=== PATIENT | female | born 1970 | race Caucasian/White ===

== ENCOUNTER 2017-12-26 22:36 | Emergency (ER) | payer OTHER, SELFPAY ==
[2017-12-26] VITALS (12 sets, daily range): BP systolic 120–149; BP diastolic 79–91; PULSE 75–91; RESP 13–20; TEMP 36.7; O2SAT 95–98
--- NOTE | 2017-12-26 23:21 | ED.GENADUL_ITS ---
Discharge Plan Disposition Patient Disposition: HOME Condition: Good Discharge Details Chief Complaint: Palpitatns Clinical Impression: Atrial bigeminy, Hypokalemia Primary Care Provider: Lilliana Campo ED Provider: Esau Dukes Mcintyre Meds and New Rx's Prescriptions: Continue naproxen sodium [Aleve] 220 MG tablet 2 tab PO BID PRNQty: 30 RF: 0 colesevelam [WelChol] 625 MG tablet 625 mg PO AC Qty: 90 RF: 12 esomeprazole magnesium [Nexium] 40 MG capsule,delayed release(DR/EC) 40 mg PO BID Qty: 180 RF: 12 metronidazole 45 GM gel 2 - 4 gm Topical BID PRNQty: 45 RF: 11 promethazine 12.5 MG tablet 12.5 mg PO Q6H PRN Qty: 60 RF: 0 levothyroxine [Synthroid] 125 MCG tablet 125 mcg PO DAILY Qty: 90 RF: 11 acetaminophen [Mapap Extra Strength] 500 MG tablet 1,000 mg PO DIRECTED RF: 0 doxycycline monohydrate 100 MG tablet 100 mg PO BID PRNRF: 0 Discharge Instructions Instructions: Hypokalemia (ED) Additional Instructions: Eat foods rich in potassium. Stay hydrated. Follow-up with primary care next week. Your palpitations were caused by atrial bigeminy which is a benign arrhythmia. Return to ED if you develop chest pain, shortness of breath, syncope. Referrals: Lilliana Campo MD, [place] [Primary Care Provider] - Medical Decision Making Patient presenting with complaints of palpitations. She has had some chest tightness though that is not her major complaint. Her EKG is sinus rhythm with nonspecific ST flattening. Just before I came into the room she reported having palpitations. I went back to review the monitor alarm. Found her to be in atrial bigeminy. While talking to her she went back into this rhythm for short period of time and had symptoms. Her exam is otherwise unremarkable. Her vital signs and saturations are normal. We will go ahead and get laboratory studies including q4 troponins because of the complaint of chest tightness and the nonspecific ST changes. Will monitor her while she is here. Laboratory studies are significant for potassium of 3. Otherwise CBC, chemistries, TSH, troponin are normal. Patient is given potassium supplementation orally and IV. Subsequently palpitations stopped. Second troponin was obtained and is negative. Repeat EKG after IV potassium and oral potassium replacement shows normal T waves. Sinus rhythm at 67 with normal intervals and axis. Patient will be discharged home. She is to stay hydrated and eat a diet rich in potassium. Not clear why she is so hypokalemic as she is not on diuretics and denies being a heavy alcohol drinker. Follow-up with primary care next week. Return to ED for chest pain, shortness of breath, fainting. Medical Records Medical records reviewed: Yes I reviewed the patient's medical records. Lab Data Lab results reviewed: Yes I reviewed the patient's lab results. ECG Data Attestation: I personally reviewed and interpreted this ECG (s) as follows: Prior ECG tracings: available for review Interpretation: Normal sinus rhythm at a rate of 84. Normal axis and intervals. Nonspecific ST changes especially in the lateral precordial leads. She has a fair amount of ST flattening which had not been present compared to EKG in 2013. HPI General Mode of arrival: ambulatory . Date/Time Provider Initiated Documentation: 12/26/17 22:44 . Limitations to Documentation: no limitations . Information obtained by: patient, family and old records reviewed . HPI Narrative: Patient presents to the ED for evaluation of palpitations. She has had palpitations previously but these seem different. She actually has feeling of her heart flipping in her chest as well as heart rate being faster than usual. She has had fleeting sharp pain on and off. Nothing prolonged. She does describe some chest tightness on and off. She has had no lightheadedness or syncope. Maybe a little shortness of breath. She has been worked up previously dating back as far as 2012. More recently she had a Zio patch this summer. No arrhythmias have ever been found. She is followed at [facility] for her thyroid. She does report for the last 3 weeks feeling myalgias and malaise as well as low-grade fevers. For the last 3 days she has been having episodes of palpitations. Tonight it has been more prolonged which prompted her to come in. Related Data Home Medications Medication Instructions Recorded Confirmed acetaminophen [Mapap Extra 1,000 mg PO DIRECTED 03/04/15 12/27/17 Strength] naproxen sodium [Aleve] 2 tab PO BID PRN #30 tab 04/05/15 12/27/17 colesevelam [WelChol] 625 mg PO AC #90 tab-cap 12/27/15 12/27/17 esomeprazole magnesium [Nexium] 40 mg PO BID #180 tab-cap 03/22/17 12/27/17 metronidazole 2 - 4 gm TOPICAL BID PRN #45 script 05/01/17 12/27/17 promethazine 12.5 mg PO Q6H PRN #60 tab-cap 07/31/17 12/27/17 levothyroxine [Synthroid] 125 mcg PO DAILY #90 tab-cap NS 08/14/17 12/27/17 doxycycline monohydrate 100 mg PO BID PRN 12/27/17 12/27/17 Previous Rx's Medication Instructions Recorded esomeprazole magnesium [Nexium] 40 mg PO BID #180 tab-cap 03/22/17 promethazine 12.5 mg PO Q6H PRN #60 tab-cap 07/31/17 levothyroxine [Synthroid] 125 mcg PO DAILY #90 tab-cap NS 08/14/17 Allergies Allergy/AdvReac Type Severity Reaction Status Date / Time erythromycin base Allergy Severe Anaphylaxsis, Unverified 12/27/17 00:40 hives Sulfa (Sulfonamide Allergy Mild Skin Rash Unverified 12/27/17 00:40 Antibiotics) povidone-iodine AdvReac Intermediate Skin Rash Unverified 12/27/17 00:40 [From Betadine] soap [From Betadine] AdvReac Intermediate Skin Rash Unverified 12/27/17 00:40 tramadol AdvReac Intermediate incoherent Unverified 12/27/17 00:40 General Stated Complaint: Palpitatns KERRIE: 3 Review of Systems Constitutional Reports body ache(s), Reports fatigue, Denies fever(s), Denies headache(s), Denies lethargy, Reports malaise and Denies poor appetite Eyes Denies eye discharge and Denies eye pain ENT Denies vertigo, Denies dizziness, Denies otalgia, Denies facial pain, Denies headache(s), Denies sinus pressure and Denies sore throat Cardiovascular Denies chest pain, Denies diaphoresis, Denies syncope, Reports irregular heart rhythm, Denies lightheadedness, Reports palpitations, Denies dyspnea and Denies orthopnea Respiratory Denies cough and Denies dyspnea Gastrointestinal Denies abdominal pain, Denies diarrhea, Denies nausea and Denies vomiting Genitourinary Denies dysuria and Denies flank pain Musculoskeletal Denies back pain, Reports myalgias, Denies arthralgias and Denies tingling Integumentary/Breasts Denies rash Neurologic Denies vertigo, Denies dizziness, Denies syncope, Denies headache(s), Denies focal weakness, Denies tingling and Denies paresthesias Endocrine Reports fatigue and Reports palpitations [facility] Family History Mother Neoplasm Father Diabetes Essential hypertension Neoplasm Sister No problems noted. Brother Diabetes Essential hypertension Hyperlipidemia Brother Diabetes Essential hypertension Hyperlipidemia Grandfather Diabetes Myocardial infarction Neoplasm Grandfather Diabetes Heart disease Neoplasm Grandmother Heart disease Myocardial infarction Cerebrovascular accident Grandmother Neoplasm Cerebrovascular accident Daughter No problems noted. Daughter Epilepsy Daughter No problems noted. 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) Hypothyroidism (Chronic 09/16/12) Hypokalemia (Resolved 10/18/15) Herpes zoster without complication (Resolved 11/02/16) Headache (Chronic 11/08/10) GERD (gastroesophageal reflux disease) (Chronic) Fibromyalgia syndrome (Chronic 03/11/14) Fatigue (Chronic 10/09/13) Esophageal dysmotility (Chronic) De Quervain's tenosynovitis, right (Chronic 09/04/16) Cyst of right ovary (Resolved 11/20/14) Nondisplaced fracture of neck of left radius, initial encounter for closed fracture (Resolved 07/24/16) Chronic obstructive lung disease (Chronic 02/25/13) Chronic low back pain with left-sided sciatica (Chronic 12/27/15) Breast pain, left (Resolved 03/22/17) Bowel and bladder incontinence (Chronic 12/27/15) Blurring of visual image of both eyes (Chronic 01/04/15) Abdominal pain, right lower quadrant History of Graves' disease Social History household members: other details: 3 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 pets and animals: Yes pets and animals: dog(s) Smoking/Tobacco Use Status: Never alcohol intake: never substance use type: does not use special suman needs: No Surgical History Appendectomy Augmentation mammoplasty Cholecystectomy Diagnostic Laproscopy (08/07/02) Keira Fundoplication Procedures Repair of umbilical hernia Tonsillectomy and adenoidectomy Vaginal hysterectomy (03/03/15) Exam Const General: cooperative, comfortable and no acute distress Orientation: alert and oriented x3 HENMT Head: normocephalic and atraumatic Neck Neck: trachea midline and supple Resp Effort & Inspection: normal respiratory effort Auscultation: clear to auscultation bilaterally Cardio Rate: regular rate Rhythm: regular rhythm Heart Sounds: S1 normal and S2 normal Pulses: normal peripheral pulses GI Palpation: soft and nontender Skin General skin exam: no rashes or lesions noted Neuro General: alert, oriented x3, no focal motor deficits and CN's II-XI intact bilaterally Extrem General: no clubbing, cyanosis or edema and no calf tenderness Course Vital Signs Temperature 98.1 F 12/26/17 22:41 Pulse 82 12/26/17 22:41 Respiratory Rate 20 12/26/17 22:41 Blood Pressure 149/79 H 12/26/17 22:41 Pulse Oximetry 98 12/26/17 22:41 Temperature 98.1 F 12/26/17 22:41 Temperature Source Temporal Artery Scan 12/26/17 22:41 Pulse 82 12/26/17 22:41 Respiratory Rate 20 12/26/17 22:41 Respiratory Effort Non-Labored 12/26/17 22:41 Blood Pressure 149/79 H 12/26/17 22:41 Blood Pressure Position Sitting 12/26/17 22:41 Pulse Oximetry 98 12/26/17 22:41 Oxygen Delivery Method Room Air 12/26/17 22:41 Oxygen Flow Rate 0 12/26/17 22:41 Pain Level 0 12/26/17 22:45
[2017-12-26 23:45] LABS: Abs Immature Grans 0.01 k/cumm (0.0-0.09); Absolute Basophil Count 0.03 k/cumm (0.0-0.2); Absolute Eosinophil Count 0.05 k/cumm (0.0-0.7); Absolute Lymphocyte Count 4.48 k/cumm (1.2-3.4); Absolute Monocyte Count 0.55 k/cumm (0.11-0.7); Absolute Neutrophil Count 3.58 k/cumm (1.2-6.7); Basophils % 0.3; Eosinophils % 0.6; HCT 40.6 % (36.0-46.0); HGB 13.8 g/dL (12.0-15.5); Immature Grans % 0.1; Lymphocytes % 51.5; Mean Corpuscular Hemoglobin 31.7 pg (27.0-33.0); Mean Corpuscular Volume 93.1 fL (80-95); Mean Platelet Volume 10.4 fL (8.0-11.0); Monocytes % 6.3; Neutrophils % 41.2; Platelet Count 173 x1000/uL (130-400); RBC 4.36 m/cumm (4.00-5.20); RBC Distribution Width 12.3 % (11.7-14.6)
[2017-12-26] MEDS: Aspirin 81 MG CHEW 324 MG CH (23:50)
[2017-12-27] VITALS (30 sets, daily range): BP systolic 98–121; BP diastolic 50–93; PULSE 42–85; RESP 9–20; O2SAT 93–99
[2017-12-27 00:01] LABS: ALT 26 U/L (12-78); AST 20 U/L (15-37); Albumin 3.8 g/dL (3.4-5.0); Alkaline Phosphatase 94 U/L (46-116); BUN 14 mg/dL (7-18); Bilirubin, Total 0.3 mg/dL (0.2-1.0); CREATININE 0.78 mg/dL (0.55-1.02); Calcium 8.7 mg/dL (8.5-10.1); Chloride 103 mmol/L (98-107); Glucose 117 mg/dL (70-100); Magnesium 2.1 mg/dL (1.8-2.4); Sodium 140 mmol/L (136-145); Total Protein 7.4 g/dL (6.4-8.2); Troponin I < 0.02 ng/mL (0.00-0.06)
[2017-12-27 00:08] LABS: TSH (W/Ref FT4) 0.45 uIU/mL (0.358-3.74)
[2017-12-27] MEDS: POTASSIUM CHLORIDE 10 MEQ/100 ML BAG 100 MEQ IVPB (00:19)
[2017-12-27] MEDS: Potassium Chloride 20 MEQ TABCR 40 MEQ PO (00:27)
[2017-12-27 02:51] LABS: Troponin I < 0.02 ng/mL (0.00-0.06)
== END 2017-12-27 03:22 | disposition home or self-care (01) ==
PROVIDERS: Emergency Provider Emergency Medicine; PCP Family Medicine
DX: R00.8 Other abnormalities of heart beat (principal); E87.5 Hyperkalemia; J44.9 Chronic obstructive pulmonary disease, unspecified
CPT/HCPCS: 36415; 80053; 93005; 96365; 99284; 83735; 84443; 84484; 85025; 93010; J3480

== ENCOUNTER 2018-01-07 10:14 | Outpatient (CLI) | payer OTHER, SELFPAY ==
[2018-01-07 11:49] LABS: ALT 21 U/L (12-78); AST 18 U/L (15-37); Albumin 3.3 g/dL (3.4-5.0); Alkaline Phosphatase 81 U/L (46-116); Anion Gap 9.2 mmol/L (3-11); BUN 10 mg/dL (7-18); Bilirubin, Total 0.5 mg/dL (0.2-1.0); CO2 26.8 mmol/L (21.0-32.0); CREATININE 0.55 mg/dL (0.55-1.02); Calcium 8.3 mg/dL (8.5-10.1); Chloride 104 mmol/L (98-107); Glucose 91 mg/dL (70-100); Magnesium 1.9 mg/dL (1.8-2.4); Potassium 3.8 mmol/L (3.5-5.1); Sodium 140 mmol/L (136-145); TSH (W/Ref FT4) 0.44 uIU/mL (0.358-3.74); Total Protein 6.6 g/dL (6.4-8.2)
== END 2018-01-07 10:34 ==
PROVIDERS: PCP Family Medicine; Visit Provider Family Medicine
DX: R00.2 Palpitations (principal); E87.6 Hypokalemia; E03.9 Hypothyroidism, unspecified; E89.0 Postprocedural hypothyroidism
CPT/HCPCS: 36415; 80053; 82533; 83735; 84443; 85610

== ENCOUNTER 2018-03-15 10:41 | Outpatient (CLI) | payer OTHER, SELFPAY ==
[2018-03-15 11:59] LABS: FREE T4 1.34 ng/dL (0.76-1.46); TSH 0.55 uIU/mL (0.358-3.74)
[2018-03-15 13:00] LABS: ALT 19 U/L (12-78); AST 17 U/L (15-37); Albumin 3.7 g/dL (3.4-5.0); Alkaline Phosphatase 98 U/L (46-116); Anion Gap 8.4 mmol/L (3-11); BUN 17 mg/dL (7-18); Bilirubin, Total 0.5 mg/dL (0.2-1.0); CO2 27.6 mmol/L (21.0-32.0); CREATININE 0.71 mg/dL (0.55-1.02); Calcium 8.7 mg/dL (8.5-10.1); Chloride 104 mmol/L (98-107); Glucose 88 mg/dL (70-100); Potassium 4.2 mmol/L (3.5-5.1); Sodium 140 mmol/L (136-145); Total Protein 7.4 g/dL (6.4-8.2)
== END 2018-03-15 11:01 ==
PROVIDERS: PCP Family Medicine; Visit Provider Internal Medicine Endocrinology, Diabetes & Metabolism
DX: R53.83 Other fatigue (principal); E03.9 Hypothyroidism, unspecified
CPT/HCPCS: 36415; 80053; 84439; 84443

== ENCOUNTER 2018-06-12 20:06 | Outpatient (REF) | payer OTHER, SELFPAY ==
[2018-06-12 21:01] LABS: Clarity Clear
[2018-06-12 21:52] LABS: Bacteria Moderate HPF (Negative); C & S Indicated? C&S Done As Ordered; Casts Negative LPF (Negative); Crystals Negative HPF (Negative); Epithelial Cells Many HPF (Negative); Mucus Negative (Negative); Other Cells Negative (Negative); RBC 0-2 (0-2); WBC 0-2 HPF (0-5)
== END 2018-06-12 20:26 ==
LOC: LBN 20:06
PROVIDERS: PCP Family Medicine; Visit Provider Family Medicine
DX: R30.0 Dysuria (principal)
CPT/HCPCS: 81003; 81015; 87086

== ENCOUNTER 2018-08-13 00:24 | Outpatient (CLI) | payer OTHER, SELFPAY ==
--- NOTE | 2018-08-13 12:30 | DI.MAMMO_ITS ---
SYMPTOMS/DIAGNOSIS: SCREENING, Z12.31 MAMMOGRAM: Mammograms were interpreted according to the usual protocol including computer analysis with CAD system, tomosynthesis and C view imaging. The breasts are heterogeneously dense. There are bilateral mammary implants. No dominant mass or clumped microcalcification is identified in either breast. Current examination is compared with the previous examinations including April 2014 and there has been no gross interval change in appearance in comparison with the previous studies. CONCLUSION: No specific evidence of malignancy at this time. Routine screening examinations are suggested at yearly intervals due to the family history of breast carcinoma. Category 1, breast density category C. MQSA ASSESSMENT OF FINDINGS: Negative. Category 1. Patient will receive a letter notifying them of these results. Bi-RADS category C. The breasts are heterogeneously dense, which may obscure small masses.
== END 2018-08-13 00:44 ==
PROVIDERS: PCP Family Medicine; Visit Provider Family Medicine
DX: Z12.31 Encounter for screening mammogram for malignant neoplasm of breast (principal); Z80.3 Family history of malignant neoplasm of breast
CPT/HCPCS: 77063; 77067

== ENCOUNTER 2018-12-12 13:43 | Outpatient (CLI) | payer OTHER, SELFPAY ==
[2018-12-12 14:18] LABS: Abs Immature Grans 0.01 k/cumm (0.0-0.09); Absolute Basophil Count 0.01 k/cumm (0.0-0.2); Absolute Eosinophil Count 0.03 k/cumm (0.0-0.7); Absolute Lymphocyte Count 3.05 k/cumm (1.2-3.4); Absolute Monocyte Count 0.36 k/cumm (0.11-0.7); Absolute Neutrophil Count 2.72 k/cumm (1.2-6.7); Basophils % 0.2; Eosinophils % 0.5; HGB 14.2 g/dL (12.0-15.5); Immature Grans % 0.2; Lymphocytes % 49.4; Mean Corpuscular Hemoglobin 31.1 pg (27.0-33.0); Mean Corpuscular Volume 94.1 fL (80-95); Mean Platelet Volume 9.5 fL (8.0-11.0); Monocytes % 5.8; Neutrophils % 43.9; Platelet Count 235 x1000/uL (130-400); RBC 4.57 m/cumm (4.00-5.20); RBC Distribution Width 12.3 % (11.7-14.6); White Blood Cell Count 6.18 k/cumm (4.4-10.8)
[2018-12-12 15:44] LABS: ALT 30 U/L (14-59); AST 21 U/L (15-37); Albumin 3.9 g/dL (3.4-5.0); Alkaline Phosphatase 104 U/L (46-116); Anion Gap 10.4 mmol/L (3-11); BUN 14 mg/dL (7-18); Bilirubin, Total 0.3 mg/dL (0.2-1.0); CO2 27.6 mmol/L (21.0-32.0); CREATININE 0.79 mg/dL (0.55-1.02); Calcium 8.9 mg/dL (8.5-10.1); Chloride 104 mmol/L (98-107); Glucose 107 mg/dL (70-100); Magnesium 2.1 mg/dL (1.8-2.4); Potassium 3.8 mmol/L (3.5-5.1); Sodium 142 mmol/L (136-145); TSH (W/Ref FT4) 0.86 uIU/mL (0.36-3.74); Total Protein 7.4 g/dL (6.4-8.2)
[2018-12-13 10:02] LABS: Cyclic Citrullinated Peptide <2.5 U/mL (<5.0)
[2018-12-13 10:18] LABS: Lyme Ab w Rflx to Lyme Confirm Negative; Rheumatoid Factor 8 IU/mL (<12.5)
[2018-12-13 15:44] LABS: ANA Interpretation Negative (NEGAT)
== END 2018-12-12 14:03 ==
PROVIDERS: PCP Family Medicine; Visit Provider Family Medicine
DX: E03.9 Hypothyroidism, unspecified (principal); M25.50 Pain in unspecified joint; M79.2 Neuralgia and neuritis, unspecified
CPT/HCPCS: 36415; 80053; 86200; 83735; 84443; 85025; 86038; 86431; 86618

== ENCOUNTER 2018-12-18 00:41 | Outpatient (CLI) | payer OTHER, SELFPAY ==
--- NOTE | 2018-12-18 10:53 | DI.MRI_ITS ---
EXAM: MR BRAIN WO CLINICAL HISTORY: headache and body aches which wake her up, R51. TECHNIQUE: Multiplanar multisequence MRI was performed. COMPARISON: MRI - BRAIN W/WO CONTRAST from 01/22/2015 FINDINGS: There are again seen a few scattered foci of hyperintense signal in the white matter. These are uncha nged compared to the prior examination and likely reflect small vessel ischemic disease. The diffusi on-weighted images have a normal appearance. No intracranial hemorrhage is present. The ventricles are intact. The basilar cisterns are patent. There is no acute midline shift or mass effect. There is normal flow void in the vdjffo-el-Tadldj. The pituitary gland has a normal appearance. The visu alized paranasal sinuses are clear. The orbits and retro-orbital soft tissues are unremarkable. IMPRESSION: Unremarkable MRI of the brain. No change in appearance of the brain compared to prior examination fr om 01/22/2015.
== END 2018-12-18 01:01 ==
PROVIDERS: PCP Family Medicine; Visit Provider Family Medicine
DX: R51 Headache (principal); M79.18 Myalgia, other site
CPT/HCPCS: 70551

== ENCOUNTER 2019-01-09 01:55 | Outpatient (CLI) | payer OTHER, SELFPAY ==
--- NOTE | 2019-01-13 12:18 | W.HOLTRPT ---
Date of service: 01/13/19 Time of Service: 12:18 Holter Monitor Report Holter Monitor Note: Is a 48-hour Holter monitor ordered for the indication of palpitations. ?This patient was in normal sinus rhythm for the majority of the recording. ?The patient had 8 episodes of supraventricular tachycardia with the longest lasting 5 beats. ?The patient had rare (less than 1%) premature atrial contractions. ?The patient had no episodes of ventricular tachycardia. The patient had rare (less than 1%) single ventricular ectopic beats and 23 couplets. ?There were no episodes of atrial fibrillation, high degree heart block or pauses gradient 3 seconds. ?Patient diary events were associated with PACs and PVCs.
== END 2019-01-09 02:15 ==
PROVIDERS: PCP Family Medicine; Visit Provider Family Medicine
DX: R00.2 Palpitations (principal); I47.1 Supraventricular tachycardia; I49.1 Atrial premature depolarization; I49.3 Ventricular premature depolarization
CPT/HCPCS: 93225

== ENCOUNTER 2019-01-13 08:37 | Outpatient (CLI) | payer OTHER, SELFPAY | END 2019-01-13 08:57 | PROVIDERS: PCP Family Medicine; Visit Provider Emergency Medicine | DX: R00.2 Palpitations (principal); I49.1 Atrial premature depolarization; I49.3 Ventricular premature depolarization; I47.1 Supraventricular tachycardia | CPT/HCPCS: 93226 ==

== ENCOUNTER → 2019-05-01 13:04 | Outpatient (REF) | payer OTHER, SELFPAY | LOC: LBN 13:04 | PROVIDERS: PCP Family Medicine; Visit Provider Family Medicine | DX: N76.0 Acute vaginitis (principal) | CPT/HCPCS: 87480; 87510; 87660 ==

== ENCOUNTER 2019-08-06 07:50 | Outpatient (CLI) | payer OTHER, SELFPAY ==
--- NOTE | 2019-08-06 12:47 | DI.RAD_ITS ---
EXAM: XR SHOULDER RT COMPLETE 2+V CLINICAL HISTORY: r shoulder pain M25.511. TECHNIQUE: 2D digital imaging was performed. COMPARISON: No exams were available for comparison FINDINGS: BONES: No acute fracture is present. No bony destructive lesion is seen. JOINTS: No dislocation present. SOFT TISSUE: Normal. IMPRESSION: Unremarkable radiographs of the right shoulder. DATA REPOSITORY: RADIATION DOSE DELIVERED:
== END 2019-08-06 08:10 ==
PROVIDERS: PCP Family Medicine; Visit Provider Family Medicine
DX: M25.511 Pain in right shoulder (principal)
CPT/HCPCS: 73030

== ENCOUNTER 2019-09-18 03:11 | Outpatient (CLI) | payer OTHER, SELFPAY ==
[2019-09-18 11:48] LABS: ALT 23 U/L (14-59); AST 17 U/L (15-37); Albumin 3.3 g/dL (3.4-5.0); Alkaline Phosphatase 92 U/L (46-116); Anion Gap 6.3 mmol/L (3-11); BUN 11 mg/dL (7-18); Bilirubin, Total 0.4 mg/dL (0.2-1.0); CO2 27.7 mmol/L (21.0-32.0); CREATININE 0.61 mg/dL (0.55-1.02); Calcium 8.5 mg/dL (8.5-10.1); Chloride 104 mmol/L (98-107); Glucose 104 mg/dL (74-106); Magnesium 1.9 mg/dL (1.8-2.4); Potassium 3.9 mmol/L (3.5-5.1); Sodium 138 mmol/L (136-145); Total Protein 6.6 g/dL (6.4-8.2)
[2019-09-18 12:10] LABS: FREE T4 1.22 ng/dL (0.76-1.46)
== END 2019-09-18 03:31 ==
PROVIDERS: PCP Family Medicine; Visit Provider Family Medicine
DX: R00.2 Palpitations (principal)
CPT/HCPCS: 36415; 80053; 83735; 84439; 84443

== ENCOUNTER 2019-09-26 14:03 | Outpatient (CLI) | payer OTHER, SELFPAY | END 2019-09-26 14:23 | PROVIDERS: PCP Family Medicine; Visit Provider Family Medicine | DX: I49.3 Ventricular premature depolarization (principal); I49.1 Atrial premature depolarization; R00.0 Tachycardia, unspecified; R42 Dizziness and giddiness; R51 Headache | CPT/HCPCS: 0296T ==

== ENCOUNTER 2019-11-11 01:39 | Outpatient (CLI) | payer OTHER, SELFPAY ==
--- NOTE | 2019-11-22 09:29 | RESPIRATORY ---
Pt. was called about an 8 beat run of [employer] at 2337 11/20. Pt. was symptomless during the event and this phone call. She was appreciative of the information and advised to seek help if she feels symptoms and to contact her PCP, Dr. Campo on Sunday. Of note, she denies having received a phone call for this critical event from [facility].
--- NOTE | 2019-12-22 09:35 | W.CARDEVENT ---
Date of service: 12/22/19 Time of Service: 09:35 Cardiac Event Recorder Referring Provider:: Lilliana Campo Indications:: Paroxysmal atrial flutter Cardiac Event Note: This was a 30-day event monitor, from November 10 through December 10, 2019 Predominant rhythm was sinus. Average heart rate was 61. Minimum heart rate was 51, maximum 106 There were rare ventricular ectopic beats. There was one 8 beat run of nonsustained ventricular tachycardia There were two periods of paroxysmal atrial flutter, maximum rate 150. There was no high-grade AV block or pauses greater then 3 seconds
== END 2019-11-11 01:59 ==
PROVIDERS: PCP Family Medicine; Visit Provider Family Medicine
DX: I47.1 Supraventricular tachycardia; I47.2 Ventricular tachycardia; I49.3 Ventricular premature depolarization
CPT/HCPCS: 93270

== ENCOUNTER 2019-11-27 01:29 | Outpatient (CLI) | payer OTHER, SELFPAY ==
--- NOTE | 2019-11-27 06:30 | DI.NM_ITS ---
APPROVED REPORT Exam: Exercise Treadmill Patient Location: Out-Patient Room/Bed: Stress Nurse: Aziza Hung RN BMI: 27.98 Baseline Rhythm: Sinus Bradycardia Indications: Racing palpitations, ventricular tachycardia. Medical History Medical History: GERD. Hypokalemia. Fatigue. Palpitations. Cardiac Medications: Synthroid. Gabapentin. Nexium. Allergies: Tramadol, erythromycin base, arithromycin, sulfa drugs. Cardiac Risk Factors: None. Pretest Chest Pain Characteristics: No chest pain Exercise History: Sedentary Lung Sounds: Clear to auscultation Heart Sounds: Regular Stress Test Details Test: Exercise stress testing was performed using a Abiodun protocol. Nuclear Acquisition: Rest Tc-99m/Stress Tc-99m 1 day Rest Isotope: Tc-99m Sestamibi. Dose: 11.5 Date: 11/27/2019 Injection Time: 0845 Stress Isotope: Tc-99m Sestamibi. Dose: 37.0 Date: 11/27/2019 Injection Time: 1012 HR Resting HR Supine: 55 bpm Max Heart Rate (APMHR): 169.435630 bpm Resting HR Standin bpm Target HR (85% APMHR): 143.039008 bpm Max HR Achieved: 152 bpm % of APMHR: 89.94 Recovery HR: 78 bpm HR response to stress: Normal HR response to stress BP Resting BP Supine: 100/72 mmHg Resting BP Standin/70 mmHg Max BP: 132/85 mmHg Recovery BP: 112/82 mmHg BP response to stress: Normal blood pressure response to stress. ECG Resting ECG: Sinus Bradycardia Ectopy: None. Stress ECG: Sinus Tachycardia ST Change: Upsloping and horizontal ST depression Lead(s): II, III, aVF, V4, V5, V6 Stage: [address] Deviation: 1 mm Arrhythmia: unifocal PVC's, bigeminy, occasional PAC Recovery ECG: Sinus Rhythm Recovery ST Change: Upsloping ST depression Lead(s): II, III, AvF, V4, V5, V6 Recovery ST Deviation: 1 mm Recovery Arrhythmia: occasional PVC/PAC. Comment: ST segment returned to baseline by 1 minute recovery. Clinical Reason for Termination: Fatigue Stress Symptoms: Dizziness Exercise duration: 9 min21 sec Highest Stage Reached: Stage 4: 4.2 mph at 16% grade. Exercise capacity: 10.74 METs Stress ECG Conclusion 1. Patient exercised for 9 minutes (11 METS). Exercise was stopped due to dizziness and fatigue. 2. Patient developed upsloping and horizonatla [address] depressions in the lateral and inferior leads. 3. Both symptoms and EKG findings are suggestive of ischemia. Stress Test Summary STAGE Time (mins) Speed (mph) Grade (%) HR BP SYMPTOMS METS Supine 55 100/72 Standing 53 102/70 1 3 1.7 10 90 4.6 2 6 2.5 12 136 7 3 9 3.4 14 148 10.2 4 12 4.2 16 dizziness 12.9 1 min recovery 115 132/82 dizziness, nauseous 3 min recovery 85 132/92 symptoms resolved 6 min recovery 78 112/82 MPI Conclusion The ejection fraction was 59% with stress. There were no wall motion abnormalities. There was no evidence of ischemia on the imaging portion of the exam. There is discordant findings between the imaging and EKG portion of this exam. Radiologist Interpretation Radiologist agrees with Adventure Therapist's Interpretation. Radiologist Interpretation by: Tim Barnes MD Interpretation Date/Time: 12/01/2019 14:30:33
[2019-11-27 09:06] LABS: HCT 38.7 % (36.0-46.0); HGB 12.9 g/dL (11.2-15.7); MCH 30.6 pg (27.0-33.0); MCHC 33.3 % (32.0-36.0); MCV 91.7 fL (80-95); MPV 9.6 fL (8.0-11.0); Platelet Count 210 10^3/uL (130-400); RBC 4.22 10^6/uL (3.93-5.22); RDW 12.1 % (11.7-14.6); RDW-SD 40.4 fL; WBC 5.12 10^3/uL (4.4-10.8)
[2019-11-27 10:17] LABS: ALT 18 U/L (14-59); AST 17 U/L (15-37); Albumin 3.3 g/dL (3.4-5.0); Alkaline Phosphatase 101 U/L (46-116); Anion Gap 6.2 mmol/L (3-11); BUN 11 mg/dL (7-18); Bilirubin, Total 0.3 mg/dL (0.2-1.0); CO2 27.8 mmol/L (21.0-32.0); CREATININE 0.58 mg/dL (0.55-1.02); Calcium 8.1 mg/dL (8.5-10.1); Chloride 105 mmol/L (98-107); Glucose 98 mg/dL (74-106); Magnesium 2.1 mg/dL (1.8-2.4); Potassium 3.9 mmol/L (3.5-5.1); Sodium 139 mmol/L (136-145); TSH (W/Ref FT4) 0.25 uIU/mL (0.36-3.74); Total Protein 6.4 g/dL (6.4-8.2)
[2019-11-27 10:37] LABS: FREE T4 1.39 ng/dL (0.76-1.46)
== END 2019-11-27 01:49 ==
PROVIDERS: PCP Family Medicine; Visit Provider Family Medicine
DX: R00.2 Palpitations; I47.2 Ventricular tachycardia
CPT/HCPCS: 78452; 80053; 85027; 83735; 84439; 84443; 93017

== ENCOUNTER 2019-12-05 03:28 | Outpatient (CLI) | payer OTHER, SELFPAY ==
--- NOTE | 2019-12-05 07:15 | DI.US_ITS ---
APPROVED REPORT EXAM: Comprehensive 2D, Doppler, and color-flow Echocardiogram Patient Location: Out-Patient Creative Director: Asia Molina RDCS (AE) Indications: Atrial Flutter, Palpitations Other Information Study Quality: Good Conclusion Normal left ventricular chamber size and wall thickness. Estimated ejection fraction is 60 to 65%. There are no segmental wall motion abnormalities Normal right ventricular size and systolic function Normal right and left atrial size There are no structural or hemodynamically significant valvular abnormalities Wall motion Left Ventricle The left ventricle is normal size. The left ventricular systolic function is normal. The left ventric ular ejection fraction is within the normal range. There is normal left ventricular wall thickness. T here is normal LV segmental wall motion. There is no ventricular septal defect visualized. LVEF is 60 -65%. Right Ventricle The right ventricle is normal size. The right ventricular systolic function is normal. The RVSP is 26 .1 mmHg. Atria The left atrium size is normal. The right atrium size is normal. The interatrial septum is intact wit h no evidence for an atrial septal defect. Aortic Valve The aortic valve is normal in structure. Aortic valve is trileaflet. There is no aortic valvular sten osis. No aortic regurgitation is present. Mitral Valve The mitral valve is normal in structure. No evidence of mitral valve stenosis. Trace mitral regurgita tion. Tricuspid Valve The tricuspid valve is normal in structure. There is no tricuspid valve stenosis. Trace tricuspid reg urgitation. Pulmonic Valve The pulmonary valve is normal in structure. There is no pulmonic valvular stenosis. Trace pulmonic re gurgitation. Great Vessels The aortic root is normal in size. The ascending aorta is normal in size. Aortic arch is normal in ca liber. IVC is normal in size and collapses >50% with inspiration. Pericardium There is no pericardial effusion. 2D Dimensions IVSD d PLAX 0.85 cm F: 0.6-1.0 LV Vol A2C d MOD 78.3 mL LVPW d PLAX 0.86 cm F: 0.6 - 1.0 LV Vol A4C d MOD 99.9 mL LVID d PLAX 4.75 cm F: 3.8 - 5.2 LA vol/ BSA A2C s A-L 22.9 mL/m2 LVDs 3.30 cm F: 2.2 - 3.5 LA vol/ BSA A4C s A-L 17.8 mL/m2 Ao Root d 2.75 cm F: 2.7 - 3.3 LA Vol/ BSA Biplane s A-L 20.4 mL/m2 RA Area A4C 9.50 cm2 LA Area A4C s MOD 13.55 cm2 RA Vol/ BSA A4C s A-L 10.2 mL/m2 LA Area A2C s MOD 15.26 cm2 Ao Asc Diam d 2.66 cm F: 2.3 - 3.1 LV EF A4C MOD 65.8 % LV EF Teichholz 57.6 % LV EF A2C MOD 61.0 % LVEF (Lewis's) 63.31 % F: 54 - 74 LV EF Biplane MOD 63.3 % LV Volume 70.63 mL F: 46 - 106 SV 56.78 mL LV Volume Index 40.59 mL/m2 F: 29 - 61 SV Index 32.66 mL/m2 LV Vol Biplane MOD 89.7 mL FS 30.25 % M-Mode TAPSE 2.23 cm (M/F) >1.7 LV Diastology MV E' medial 0.136 (>0.07 m/s) E/A Ratio 1.1 LV E/e MED 6.40 (<14) MV E Vmax 0.87 (0.4-1.3 m/s) MV E' lateral 0.136 (>0.1 m/s) MV A Vmax 0.80 (0.4-1.3 m/s) LV E/e LAT 6.40 (<14) MV E/A Ratio 1.08 MV E/E' medial 6.41 MV E/E' lateral 6.41 Aortic Valve LVOT Area 2.90 cm2 AoV Area Vmax 2.35 cm2 LVOT Vmax 1.22 m/s AoV Area/ BSA (Vmax) 1.35 cm2/m2 LVOT Mean Ronak. 0.70 m/s KELLY Mean Ronak. 1.97 cm2 LVOT Peak Grad 6.0 mmHg KELLY Mean Ronak. Index 1.13 cm2/m2 LVOT Mean Grad 2.5 mmHg LVOT VTI 0.274 m LVOT Diam s 1.90 cm AoV Vmax 1.51 m/s Velocity Ratio 0.80 AoV Mean Ronak. 1.03 m/s AoV Peak Grad 9.1 mmHg LVOT SV 79.48 mL AoV Mean Grad 4.7 mmHg AoV VTI 0.331 m AoV Area VTI 2.40 cm2 AoV Area/ BSA (VTI) 1.38 cm/m2 Mitral Valve MV DT 218 (160-240 msec) MV PHT 63 msec MV Area PHT 3.49 cm2 Pulmonary Valve PV Vmax 0.90 (0.5-1.5 m/s) RVOT Peak Gr. 1.75 mmHg PV Peak Grad 3.2 mmHg RVOT Mean Gr. 0.90 mmHg PV Mean Grad 1.7 mmHg RVOT VTI 0.183 m PV VTI 0.215 m RVOT Vmax 0.66 m/s Tricuspid Valve TR Peak Grad 23.1 mmHg TR Vmax 2.41 m/s RA Pressure 3.00 mmHg RVSP (TR) 26.1 mmHg
== END 2019-12-05 03:48 ==
PROVIDERS: PCP Family Medicine; Visit Provider Internal Medicine Cardiovascular Disease
DX: R00.2 Palpitations (principal); I48.92 Unspecified atrial flutter
CPT/HCPCS: 93306

== ENCOUNTER 2019-12-16 13:51 | Emergency (ER) | payer OTHER, SELFPAY ==
[2019-12-16] VITALS (77 sets, daily range): BP systolic 100–146; BP diastolic 64–89; PULSE 56–87; RESP 12–28; TEMP 36.6; O2SAT 94–99
--- NOTE | 2019-12-16 13:45 | RT.EKG_ITS ---
APPROVED REPORT Exam: Resting ECG Patient Location: E HR:63 bpm ECG Measurements Heart Rate 63 AXIS NV 171 P 50 QRSd 89 QRS -1 QT 410 T -5 QTc 420 Conclusion Sinus rhythm...normal P axis, V-rate 60- 99
--- NOTE | 2019-12-16 14:47 | ED.GENADUL_ITS ---
Discharge Plan Disposition Patient Disposition: [facility] Condition: Stable Discharge Details Clinical Impression: Near syncope, Atrial flutter, NSVT (nonsustained ventricular tachycardia) Primary Care Provider: Lilliana Campo ED Provider: Tim Knowles Home Meds and New Rx's Prescriptions: No Action acetaminophen [Mapap Extra Strength] 500 mg tablet 1,000 mg PO TID PRNRF: 0 promethazine 12.5 mg tablet 12.5 mg PO Q6H PRN Qty: 60 RF: 0 esomeprazole magnesium [Nexium] 40 mg capsule,delayed release(DR/EC) 40 mg PO BID Qty: 180 RF: 12 prednisone 20 mg tablet See Rx Instructions PO DAILY Qty: 22 RF: 4 potassium chloride 20 mEq tablet extended release 20 meq PO DAILY PRNRF: 0 naproxen sodium [Aleve] 220 MG tablet 2 tab PO BID PRNQty: 30 RF: 0 metronidazole 0.75 % gel 1 applic Topical BID PRN (Reason: rosacea) Qty: 45 RF: 3 gabapentin 300 mg capsule 300 mg PO BID Qty: 180 RF: 4 levothyroxine [Synthroid] 112 mcg tablet 112 mcg PO DAILY Qty: 90 RF: 4 doxycycline monohydrate 100 mg tablet 100 mg PO BID PRNRF: 0 amitriptyline 25 mg tablet 25 mg PO QHS PRNRF: 0 tolterodine 4 mg capsule,extended release 24hr 4 mg PO DAILY RF: 0 Medical Decision Making <Tim Knowles MD - Last Filed: 12/17/19 10:01> 49-year-old female presents from home after feeling abrupt onset of nausea, followed by staff to the ground with a questionably syncopal event. heard a thump and went to the kitchen where he found her awake. She remembers seeing him. She denies chest pain, no shortness of breath, no headache and no abdominal pain or vomiting. She has a longstanding history of palpitations, having undergone a 14-day Zio patch, and most recently a cardiac event monitor for 30 days. She was seen by cardiology and after note of probable supraventricular tachycardia with aberrancy she was placed on metoprolol 25 mg which she shortly thereafter stopped it due to lightheadedness. She has not yet received the final impression of her recent 30-day pvc monitor, but notes that Dr. Elie, her local parking supervisor, has referred her to the electrophysiology service at [facility] for consultation on January 19. Her vital signs and exam are unremarkable. Her Zio patch monitor from October revealed 2 episodes of supraventricular tachycardia with aberrancy versus V. tach, 4 episodes of supraventricular tachycardia measuring up to 11 beats. No atrial fibrillation. Of note, there are partial reports of her recent cardiac event monitor which showed a brief episode of a flutter on November 13 and a 8 beat run of V. tach on November 20. No further interpretation available at this time. Laboratories are reassuring. Patient is in a sinus rhythm. I discussed her case with Dr. Andrés Nelson from [facility] electrophysiology service. He recommends transfer with admission for further work-up at this time. After we reviewed the patient's available monitor records she feels its most likely she had rapid a flutter with a compensatory pause causing her near syncopal events, but that she needs further work-up. No bed available tonight, she is first listed for transfer tomorrow. Will admit on lunchroom monitor overnight, patient accepted by Dr. Cornejo. At this time, the available inpatient bed not yet available. As such, will sign the patient out to the oncoming physician, Dr. Quan. Addendum: at 8 AM on December 16 [facility] of care back from Dr. Quan and the patient was accepted to [facility] in transfer, prior to being admitted to our inpatient bed. Her 8-hour troponin was negative as well. <Jamshid Quan DO - Last Filed: 12/17/19 07:04> Patient was signed out to me by my colleague Dr. Tim Knowles. Please refer to his HPI, physical exam assessment and plan. At time of signout the patient was actually admitted to the hospitalist however there are no beds available at [facility], and [facility] is not yet available for transfer. Throughout the evening the patient did well, she had no tachydysrhythmias, syncope or other abnormalities. She was given 50 mg of Benadryl to help sleep. Patient remained stable throughout the night. Her care will be transitioned back to Dr. Knowles. HPI <Tim Knowles MD - Last Filed: 12/17/19 10:01> General Mode of arrival: ambulatory . Date/Time Provider Initiated Documentation: 12/16/19 13:59 . Limitations to Documentation: no limitations . Information obtained by: patient . History of Present Illness 49 year old F presents to the emergency department with the chief complaint of Syncope/near syncope, described as mild, Patient started experiencing this minute(s) and it has been now resolved. No relieving factors improve symptom(s), No exacerbating factors reported . Patient notes other (Nausea without emesis); denies chest pain, diaphoresis, fever/chills, headaches, malaise and shortness of breath. Patient did receive the following treatments prior to arrival, none Related Data Home Medications Medication Instructions Recorded Confirmed naproxen sodium [Aleve] 2 tab PO BID PRN #30 tab 04/05/15 12/16/19 metronidazole 0.75 % topical gel 1 applic TOPICAL BID PRN #45 gm 06/17/18 12/16/19 acetaminophen 500 mg tablet 1,000 mg PO TID PRN tab 12/12/18 12/16/19 prednisone 20 mg tablet See Rx Instructions PO DAILY #22 01/09/19 12/16/19 tab esomeprazole magnesium 40 mg 40 mg PO BID #180 tab-cap 04/29/19 12/16/19 capsule,delayed release promethazine 12.5 mg tablet 12.5 mg PO Q6H PRN #60 tab-cap 04/29/19 12/16/19 gabapentin 300 mg capsule 300 mg PO BID #180 cap 09/05/19 12/16/19 levothyroxine 112 mcg tablet 112 mcg PO DAILY #90 tab 09/22/19 12/16/19 potassium chloride 20 mEq 20 meq PO DAILY PRN tab 11/28/19 12/16/19 tablet,extended release amitriptyline 25 mg PO QHS PRN 12/16/19 12/16/19 doxycycline monohydrate 100 mg PO BID PRN 12/16/19 12/16/19 tolterodine 4 mg PO DAILY 12/16/19 12/16/19 Previous Rx's Medication Instructions Recorded metronidazole 0.75 % topical gel 1 applic TOPICAL BID PRN #45 gm 06/17/18 prednisone 20 mg tablet See Rx Instructions PO DAILY #22 01/09/19 tab esomeprazole magnesium 40 mg 40 mg PO BID #180 tab-cap 04/29/19 capsule,delayed release promethazine 12.5 mg tablet 12.5 mg PO Q6H PRN #60 tab-cap 04/29/19 gabapentin 300 mg capsule 300 mg PO BID #180 cap 09/05/19 levothyroxine 112 mcg tablet 112 mcg PO DAILY #90 tab 09/22/19 Allergies Allergy/AdvReac Type Severity Reaction Status Date / Time erythromycin base Allergy Severe Anaphylaxsis, Verified 12/16/19 14:14 hives Sulfa (Sulfonamide Allergy Mild Skin Rash Verified 12/16/19 14:14 Antibiotics) povidone-iodine AdvReac Intermediate Skin Rash Verified 12/16/19 14:14 [From Betadine] soap [From Betadine] AdvReac Intermediate Skin Rash Verified 12/16/19 14:14 tramadol AdvReac Intermediate incoherent Verified 12/16/19 14:14 General Stated Complaint: Dizzy/Sync KERRIE: 2 Review of Systems <Tim Knowles MD - Last Filed: 12/17/19 10:01> Narrative: Denies palpitations, no chest pain, no headache. No injury. Now feels normal. Mild nausea that was transient and now passed. 8 systems reviewed and otherwise negative. Patient recently traveled to [place], had negative COVID-19 test this past Sunday. PFSH <Tim Knowles MD - Last Filed: 12/17/19 10:01> Medical History (Updated 12/16/19 @ 21:54 by Tra Singh) Abdominal pain Abdominal pain Abdominal pain, right lower quadrant Episodic prior to menses. Requires Dilaudid and NSAIDs for relief. 11/18/2014 ED visit for constant pain. R sided ovarian cyst. Actinic keratoses (05/01/17) Ankle edema (01/27/13) us neg times 1 occurred since long distance flight bro recently dx w/ PE Ankle edema 01/27/13 us neg times 1 occurred since long distance flight. bro recently dx w/PE Ankle edema (01/27/13) Annual physical exam (07/31/17) Arthralgia (03/03/14) Atypical mole (05/04/15) Blurring of visual image of both eyes (01/04/15) eye exam normal Bowel and bladder incontinence (12/27/15) ?hydronephrosis by MRI. 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 Hypokalemia (10/18/15) Hypokalemia (10/18/15) Hypothyroidism (09/16/12) S/P Grave's disease w/GONZALEZ [place]. Kidney stone (01/04/05) Kidney stone (01/04/05) Lichen planus-like dermatitis (05/05/14) testing hep c Meckel's diverticulum (01/04/03) s/p surgical repair. Myalgia and myositis, unspecified (05/27/13) EMG studies - left sided weakness seeing rheum 09/12/13 seen by neurology [facility] [place] Neck pain (01/05/04) left C7-8; intense suboccipital; MRI 04/09 L4-5 Neck pain (11/08/10) Nondisplaced fracture of neck of left radius, initial encounter for closed fracture (07/24/16) Pain of left breast (03/22/17) Pain of right thumb (10/02/16) Pain of right thumb (10/02/16) Palpitations (01/27/13) Paroxysmal atrial flutter Rash (06/22/14) Right hip pain (04/24/16) Right lower quadrant pain (11/20/14) Right lower quadrant pain 03/27/12 Right lower quadrant pain (03/27/12) Rosacea (01/27/13) Shoulder pain, right Tinnitus (06/22/14) Weakness of left lower extremity (12/27/15) CONFIRMED EMG PER BELKIS Surgical History (Updated 12/16/19 @ 20:08 by Tra Singh) Appendectomy 2007 [facility] [place] with repair of Meckels diverticulum. Augmentation mammoplasty Cholecystectomy 2009 [facility] [place]. Cholecystectomy Diagnostic Laproscopy (08/07/02) RLQ pain. Nl pelvis and ovaries. No ovarian cysts. minimal pelvic endometriosis. H/O breast augmentation H/O breast augmentation H/O breast surgery H/O surgical procedure 02/05/98 radioactive implant History of bilateral ligation of fallopian tubes History of bilateral tubal ligation 02/06/96 History of breast augmentation History of gynecologic surgery cryotherapy, manual rupture of right ovarian cyst 2003 History of oophorectomy, unilateral 11/05/14 right History of unilateral oophorectomy Keira Fundoplication Procedures CERVICAL LES CRYOTHERAPY Repair of umbilical hernia with mesh. Dr. Milton. S/P appendectomy S/P cholecystectomy 02/05/09 [facility] [place] S/P hernia repair with mesh placement S/P tonsillectomy and adenoidectomy S/P vaginal hysterectomy L ovary remains Status post appendectomy Status post cholecystectomy Status post hernia repair Status post Keira fundoplication Status post Keira fundoplication Status post tonsillectomy and adenoidectomy Status post vaginal hysterectomy (03/03/15) Tonsillectomy and adenoidectomy Vaginal hysterectomy (03/03/15) TVH. Previously had R ophorectomy and bilateral salpingectomy. Family History Mother , 69 Lung cancer Father , 72 Diabetes Essential hypertension Liver cancer Prostate cancer Sister No problems noted. Brother Diabetes Essential hypertension Hyperlipidemia Brother Diabetes Essential hypertension Hyperlipidemia Alcohol abuse Maternal Grandfather Diabetes Myocardial infarction Throat cancer Paternal Grandfather Diabetes Heart disease Prostate cancer Bone cancer Maternal Grandmother Heart disease Myocardial infarction Stroke Paternal Grandmother Stroke Rectal cancer Stomach cancer Bowel cancer Daughter No problems noted. Daughter Epilepsy Daughter No problems noted. 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 Pets and animals: Yes Pets and animals: dog(s) Sexually active: Yes Do you think of yourself as: straight/heterosexual Current gender identity: female What is your relationship status?: How often do you talk on the phone with friends or family?: three or more times per week How often do you get together with friends or relatives?: three or more times per week How often do you attend amish or jainism services?: 1-3 times per year Do you belong to any clubs or organized social groups?: no Panel score (0-1 are the most socially isolated patients): 2 What type of physical activity do you participate in: none Dionna/Gnosticist: Restoration Special dionna needs: No Seatbelt use: always Drive intox or ride w/intox company driver: No Do you feel safe in your relationship?: Yes Exam <Tim Knowles MD - Last Filed: 12/17/19 10:01> Narrative Exam Narrative: GEN: awake, alert, oriented 3. Pleasant, well groomed, interactive. HEAD: Normocephalic, atraumatic ENT: Mucous membranes moist, oropharynx unremarkable, External ear exam unremarkable EYES: PERRL, EOMI NECK: Full ROM, no RALPH, no menigismus CHEST/RESP: Nontender, clear to auscultation bilateral, no wheeze/rhonchi/rales CARDIOVASCULAR: RRR, no murmur, rub suyapa. 2+ Rad pulse bilateral ABDOMEN: Soft, nontender, no mass. +Bowel sounds EXT: Full ROM, no edema, no rash Neuro: Grossly normal neurologic exam, conversant, interactive. Psych: Speech fluent, thoughts congruent, affect normal Course <Tim Knowles MD - Last Filed: 12/17/19 10:01> Vital Signs Vital signs: Vital Signs Temperature 36.6 C 12/16/19 14:08 Pulse 68 12/16/19 14:08 Respiratory Rate 19 12/16/19 14:08 Blood Pressure 128/79 12/16/19 14:08 Pulse Oximetry 98 12/16/19 14:08 Temperature 36.6 C 12/16/19 14:08 Temperature Source Skin 12/16/19 14:08 Pulse 68 12/16/19 14:08 Respiratory Rate 19 12/16/19 14:08 Respiratory Effort 12/16/19 14:18 Blood Pressure 128/79 12/16/19 14:08 Blood Pressure Position Supine 12/16/19 14:08 Pulse Oximetry 98 12/16/19 14:08 Oxygen Delivery Method Room Air 12/16/19 14:08 Oxygen Flow Rate 0 12/16/19 14:08 Pain Level 0 12/16/19 14:08 Sign Out <Tim Knowles MD - Last Filed: 12/17/19 10:01> Sign Out Data: Sign Out Comment: Pending admission, AM transfer [facility] [place] Last updated by Tim Knowles MD at 12/16/19 19:07 Sign Out Comment: admitted to medicine, pending dispo upstairs or to [facility] [place] Last updated by Jamshid Quan DO at 12/17/19 07:00
[2019-12-16 15:00] LABS: Abs Immature Grans 0.01 10^3/uL (0.0-0.06); Absolute Basophil Count 0.02 10^3/uL (0.0-0.2); Absolute Eosinophil Count 0.07 10^3/uL (0.0-0.7); Absolute Lymphocyte Count 3.08 10^3/uL (1.2-3.4); Absolute Monocyte Count 0.47 10^3/uL (0.1-0.8); Absolute Neutrophil Count 2.76 10^3/uL (1.2-6.7); Basophils % 0.3; Eosinophils % 1.1; HCT 42.1 % (36.0-46.0); Immature Grans % 0.2; MCH 30.6 pg (27.0-33.0); MCHC 33.3 % (32.0-36.0); MCV 91.9 fL (80-95); MPV 9.7 fL (8.0-11.0); Monocytes % 7.3; Neutrophils % 43.1; Nucleated RBC 0 %; Platelet Count 226 10^3/uL (130-400); RBC 4.58 10^6/uL (3.93-5.22); RDW 12.3 % (11.7-14.6); RDW-SD 41.7 fL; WBC 6.41 10^3/uL (4.4-10.8)
[2019-12-16 15:28] LABS: ALT 20 U/L (14-59); AST 16 U/L (15-37); Albumin 3.6 g/dL (3.4-5.0); Alkaline Phosphatase 111 U/L (46-116); Anion Gap 7.6 mmol/L (3-11); BUN 9 mg/dL (7-18); Bilirubin, Total 0.3 mg/dL (0.2-1.0); CO2 27.4 mmol/L (21.0-32.0); CREATININE 0.69 mg/dL (0.55-1.02); Calcium 8.5 mg/dL (8.5-10.1); Chloride 104 mmol/L (98-107); Glucose 107 mg/dL (74-106); Magnesium 2.3 mg/dL (1.8-2.4); Potassium 3.5 mmol/L (3.5-5.1); Sodium 139 mmol/L (136-145); Total Protein 7.3 g/dL (6.4-8.2)
[2019-12-16 15:29] LABS: Troponin I < 0.05 ng/mL (<0.06)
[2019-12-16] MEDS: Gabapentin 300 MG CAP PO (17:20)
[2019-12-16] MEDS: Promethazine 25 MG TAB 12.5 MG PO (17:20)
[2019-12-16] MEDS: Tolterodine 2 MG CAPCR 4 MG PO (17:40)
[2019-12-16 18:20] LABS: Troponin I < 0.05 ng/mL (<0.06)
--- NOTE | 2019-12-16 19:40 | HPE_ITS ---
Date of service: 12/16/19 Time of Service: 19:40 Assessment and Plan Assessment and plan (1) Syncope: Status: Chronic Assessment and plan: As the patient was not wearing any Holter monitor at the time of her syncopal spell this morning it is unclear as to the exact etiology but given her recent abnormal cardiac event recorder findings of PSVT and atrial flutter and nonsustained ventricular tachycardia is not hard to surmise that her syncope was related to some cardiac arrhythmia. Her troponin levels have remained normal and she has had a recent work-up for ischemic or structural heart disease. At this point an EP study is warranted. Patient reportedly has been accepted for transfer to [facility] once a bed becomes available. Because the patient is still a person under interest because of her recent travel to [place] she will need to remain in isolation until her repeat SARS-CoV-2 PCR test is negative. We will continue to monitor on telemetry overnight. At this point I would not start any AV bryn blocking drugs unless she develops sustained supraventricular tachycardia or atrial flutter. Qualifiers: Syncope type: unspecified Qualified Code(s): R55 - Syncope and collapse (2) NSVT (nonsustained ventricular tachycardia): Status: Acute (3) Paroxysmal atrial flutter: Status: Acute (4) PSVT (paroxysmal supraventricular tachycardia): Status: Acute History of Present Illness History of Present Illness Chief Complaint: palpitations, syncope Narrative: 49-year-old female with past medical history of COPD, Graves' disease (treated 1998 with I-131 and subsequent thyroid replacement), sciatica, GERD and long history of palpitations and exertional fatigue and dyspnea who presents to the E R after a syncope event at home, heard but not seen by her . Patient states that she woke up feeling nauseated and felt that way all morning and was working in the kitchen when she collapsed to the ground at home. Her heard a thump and went to their kitchen to find the patient awake and on the floor. Patient does not recall feeling lightheaded or dizzy before collapsing and has no recollection of falling to the floor just that she recalled seeing her looking over her. Patient denies any chest pain/pressure, dyspnea nor any headache or abdominal pain or vomiting. She has had numerous Holter monitors and Zio patch recordings over the last few years and more recently has seen Dr. Delgadillo, digital forensic examiner, and has had extensive cardiac workup (including normal echo and normal stress GXT MPI) repeat Zio patch in September 2019 and just completed 30 day cardiac event recorder. The 14 day Zio patch from 10/01 to 10/17/2019 demonstrated NSR w/ no high grade block or afib but showed runs of PSVT and 2 episodes labeled VT but were likely SVT w/ aberrancy. Events from the 30 day event recorder included runs of atrial flutter at 140 to 150 bpm on 11/13 associated w/ feelings of fluttering or skipped beats. Event from 11/21 included 8 beat run of VT at rate of 180 bpm. She followed up w/ Dr. Delgadillo on 11/28/2019 who started her on Toprol XL 25 mg daily and referred her to [facility] cardiology services. The patient has since stopped her Toprol XL d/t complaints of lightheadedness. Dr. Delgadillo notes that the patient has been given a diagnosis of mild obstructive sleep apnea and tried but could not tolerate CPAP. Workup in the ER tonight included EKG, routine labs (CBC, CMP, troponin I). All have been normal or unremarkable. She had TFT's done 11/27/2019 which showed low TSH 0.25 but normal FT4 1.39. Dr. Tim Knowles, ER attending, spoke w/ [facility] cardiology who has accepted the patient for evaluation by EP services but a bed will not be available until tomorrow. Of note, she is a person of interest w/ respect to SARS-CoV-2 testing as the patient just returned from [place] this past Sunday after going down there to check on some of her property. She reportedly had a negative nasal antigen swab upon return this was done in [facility]. PCR testing was done earlier this evening. Review of Systems All systems reviewed & are unremarkable except as noted in HPI and below Cardiovascular Cardiovascular: Denies chest pain, Reports syncope, Reports irregular heart rhythm, Denies leg edema, Denies dyspnea and Denies dyspnea on exertion Respiratory Respiratory: Denies dyspnea and Denies dyspnea on exertion Gastrointestinal Gastrointestinal: Reports system reviewed and no additional complaints, except as documented Genitourinary Genitourinary: Reports system reviewed and no additional complaints, except as documented Musculoskeletal Musculoskeletal: Reports system reviewed and no additional complaints, except as documented Neurologic Neurologic: Reports syncope Endocrine Endocrine: Reports system reviewed and no additional complaints, except as documented [facility] Medical History (Updated 12/16/19 @ 21:54 by Tra Singh) Abdominal pain Abdominal pain Abdominal pain, right lower quadrant Episodic prior to menses. Requires Dilaudid and NSAIDs for relief. 11/18/2014 ED visit for constant pain. R sided ovarian cyst. Actinic keratoses (05/01/17) Ankle edema (01/27/13) us neg times 1 occurred since long distance flight bro recently dx w/ PE Ankle edema 01/27/13 us neg times 1 occurred since long distance flight. bro recently dx w/PE Ankle edema (01/27/13) Annual physical exam (07/31/17) Arthralgia (03/03/14) Atypical mole (05/04/15) Blurring of visual image of both eyes (01/04/15) eye exam normal Bowel and bladder incontinence (12/27/15) ?hydronephrosis by MRI. Breast pain, left (03/22/17) Cervicalgia 11/08/10 Chronic low back pain with left-sided sciatica (12/27/15) Chronic obstructive lung disease (02/25/13) PFT FEV1 71% Closed nondisplaced fracture of neck of left radius (07/24/16) Cyst of right ovary (11/20/14) De Quervain's tenosynovitis, right (09/04/16) Disorder of gallbladder Disorder of gallbladder Dysmenorrhea (11/20/14) Dysmenorrhea 11/20/14 Dysmenorrhea (11/20/14) Esophageal dysmotility Facial twitching (06/22/14) Fatigue (10/09/13) Fibromyalgia syndrome (03/11/14) per clinical operations consultant Kishan 03/22 GERD (gastroesophageal reflux disease) Lap keira x 2 (') Headache (11/08/10) Heart murmur h/o systolic murmur Heart murmur Herpes zoster without complication (11/02/16) Herpes zoster without complication (11/02/16) History of Graves' disease 1998 Rx with I131 and Thyroid replacement. Hypokalemia (10/18/15) Hypokalemia (10/18/15) Hypothyroidism (09/16/12) S/P Grave's disease w/GONZALEZ [place]. Kidney stone (01/04/05) Kidney stone (01/04/05) Lichen planus-like dermatitis (05/05/14) testing hep c Meckel's diverticulum (01/04/03) s/p surgical repair. Myalgia and myositis, unspecified (05/27/13) EMG studies - left sided weakness seeing rheum 09/12/13 seen by neurology [facility] Neck pain (01/05/04) left C7-8; intense suboccipital; MRI 04/09 L4-5 Neck pain (11/08/10) Nondisplaced fracture of neck of left radius, initial encounter for closed fracture (07/24/16) Pain of left breast (03/22/17) Pain of right thumb (10/02/16) Pain of right thumb (10/02/16) Palpitations (01/27/13) Paroxysmal atrial flutter Rash (06/22/14) Right hip pain (04/24/16) Right lower quadrant pain (11/20/14) Right lower quadrant pain 03/27/12 Right lower quadrant pain (03/27/12) Rosacea (01/27/13) Shoulder pain, right Tinnitus (06/22/14) Weakness of left lower extremity (12/27/15) CONFIRMED EMG PER BELKIS Surgical History (Updated 12/16/19 @ 20:08 by Tra Singh) Appendectomy 2007 [facility] with repair of Meckels diverticulum. Augmentation mammoplasty Cholecystectomy 2009 [facility]. Cholecystectomy Diagnostic Laproscopy (08/07/02) RLQ pain. Nl pelvis and ovaries. No ovarian cysts. minimal pelvic endometriosis. H/O breast augmentation H/O breast augmentation H/O breast surgery H/O surgical procedure 02/05/98 radioactive implant History of bilateral ligation of fallopian tubes History of bilateral tubal ligation 02/06/96 History of breast augmentation History of gynecologic surgery cryotherapy, manual rupture of right ovarian cyst 2002 History of oophorectomy, unilateral 11/05/14 right History of unilateral oophorectomy Keira Fundoplication Procedures CERVICAL LES CRYOTHERAPY Repair of umbilical hernia with mesh. Dr. Milton. S/P appendectomy S/P cholecystectomy 02/05/09 [facility] S/P hernia repair with mesh placement S/P tonsillectomy and adenoidectomy S/P vaginal hysterectomy L ovary remains Status post appendectomy Status post cholecystectomy Status post hernia repair Status post Keira fundoplication Status post Keira fundoplication Status post tonsillectomy and adenoidectomy Status post vaginal hysterectomy (03/03/15) Tonsillectomy and adenoidectomy Vaginal hysterectomy (03/03/15) TVH. Previously had R ophorectomy and bilateral salpingectomy. Family History Mother , 69 Lung cancer Father , 72 Diabetes Essential hypertension Liver cancer Prostate cancer Sister No problems noted. Brother Diabetes Essential hypertension Hyperlipidemia Brother Diabetes Essential hypertension Hyperlipidemia Alcohol abuse Maternal Grandfather Diabetes Myocardial infarction Throat cancer Paternal Grandfather Diabetes Heart disease Prostate cancer Bone cancer Maternal Grandmother Heart disease Myocardial infarction Stroke Paternal Grandmother Stroke Rectal cancer Stomach cancer Bowel cancer Daughter No problems noted. Daughter Epilepsy Daughter No problems noted. 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 Pets and animals: Yes Pets and animals: dog(s) Sexually active: Yes Do you think of yourself as: straight/heterosexual Current gender identity: female What is your relationship status?: How often do you talk on the phone with friends or family?: three or more times per week How often do you get together with friends or relatives?: three or more times per week How often do you attend gnosticism or adventist services?: 1-3 times per year Do you belong to any clubs or organized social groups?: no Panel score (0-1 are the most socially isolated patients): 2 What type of physical activity do you participate in: none Dionna/Anglican: Jehovah'S Witness Special dionna needs: No Seatbelt use: always Drive intox or ride w/intox charter and tour bus driver: No Do you feel safe in your relationship?: Yes Meds Home Medications and Allergies Home Medications Medication Instructions Recorded Confirmed Type naproxen sodium [Aleve] 2 tab PO BID PRN #30 tab 04/05/15 12/16/19 History metronidazole 0.75 % topical gel 1 applic TOPICAL BID PRN #45 gm 06/17/18 12/16/19 Rx acetaminophen 500 mg tablet 1,000 mg PO TID PRN tab 12/12/18 12/16/19 History prednisone 20 mg tablet See Rx Instructions PO DAILY #22 01/09/19 12/16/19 Rx tab esomeprazole magnesium 40 mg 40 mg PO BID #180 tab-cap 04/29/19 12/16/19 Rx capsule,delayed release promethazine 12.5 mg tablet 12.5 mg PO Q6H PRN #60 tab-cap 04/29/19 12/16/19 Rx gabapentin 300 mg capsule 300 mg PO BID #180 cap 09/05/19 12/16/19 Rx levothyroxine 112 mcg tablet 112 mcg PO DAILY #90 tab 09/22/19 12/16/19 Rx potassium chloride 20 mEq 20 meq PO DAILY PRN tab 11/28/19 12/16/19 History tablet,extended release amitriptyline 25 mg PO QHS PRN 12/16/19 12/16/19 History doxycycline monohydrate 100 mg PO BID PRN 12/16/19 12/16/19 History tolterodine 4 mg PO DAILY 12/16/19 12/16/19 History Allergies Allergy/AdvReac Type Severity Reaction Status Date / Time erythromycin base Allergy Severe Anaphylaxsis, Verified 12/16/19 14:14 hives Sulfa (Sulfonamide Allergy Mild Skin Rash Verified 12/16/19 14:14 Antibiotics) povidone-iodine AdvReac Intermediate Skin Rash Verified 12/16/19 14:14 [From Betadine] soap [From Betadine] AdvReac Intermediate Skin Rash Verified 12/16/19 14:14 tramadol AdvReac Intermediate incoherent Verified 12/16/19 14:14 Exam Narrative Exam Narrative: Middle-age female lying on a hospital gurney in the emergency department. She is alert and oriented person place time circumstance. HEENT is unremarkable. Neck is supple nontender no JVD no thyromegaly no cervical lymphadenopathy normal carotid pulses Lungs are clear to auscultation Heart regular rate and rhythm without murmur rub or gallop Abdomen soft nontender NABS Lower extremities without peripheral cyanosis or edema no calf tenderness or swelling. Neuro exam is grossly intact nonfocal. Results Labs Result diagrams: 12/16/19 14:17 12/16/19 14:17 Labs: Laboratory Results - last 24 hr 12/16/19 12/16/19 12/16/19 14:17 14:17 18:00 WBC 6.41 RBC 4.58 Hgb 14.0 Hct 42.1 MCV 91.9 MCH 30.6 MCHC 33.3 RDW 12.3 Plt Count 226 MPV 9.7 Immature Gran % 0.2 Neutrophils % 43.1 Lymphocytes % 48.0 Monocytes % 7.3 Eosinophils % 1.1 Basophils % 0.3 Nucleated RBC % 0 Absolute Neutrophils 2.76 Absolute Lymphocytes 3.08 Absolute Monocytes 0.47 Absolute Eosinophils 0.07 Absolute Basophils 0.02 Sodium 139 Potassium 3.5 Chloride 104 Carbon Dioxide 27.4 Anion Gap 7.6 BUN 9 Creatinine 0.69 Estimated GFR/1.73 m2 >= 60.00 Glucose 107 H Calcium 8.5 Magnesium 2.3 Total Bilirubin 0.3 AST 16 ALT 20 Alkaline Phosphatase 111 Troponin I < 0.05 < 0.05 Total Protein 7.3 Albumin 3.6 Last Vital Signs Temp 36.6 C 12/16/19 14:08 Pulse 63 12/16/19 18:40 Resp 22 12/16/19 19:20 BP 126/77 12/16/19 18:40 Pulse Ox 95 12/16/19 19:20 COVID-19 Screening Have you,or household,traveled outside [place] in last 14 days?: Yes
[2019-12-16] MEDS: diphenhydrAMINE 25 MG CAP 50 MG PO (20:30)
[2019-12-16] MEDS: Enoxaparin 60 MG/0.6 ML SYR SC (20:31)
[2019-12-16] MEDS: Zolpidem 6.25 MG TABCR PO (22:14)
[2019-12-16 23:48] LABS: Troponin I < 0.05 ng/mL (<0.06)
[2019-12-17] VITALS (34 sets, daily range): BP systolic 101–120; BP diastolic 65–78; PULSE 47–87; RESP 12–23; O2SAT 91–96
--- NOTE | 2019-12-17 06:27 | NUR.NOTE ---
Nursing Note: Pt declined levothyroxine. Pt would like this medication with her other morning meds at 0800ish.
[2019-12-17] MEDS: Levothyroxine 112 MCG TAB PO (09:19)
[2019-12-17] MEDS: Promethazine 25 MG TAB (09:19)
[2019-12-17] MEDS: Gabapentin 300 MG CAP PO (09:19)
[2019-12-17] MEDS: Esomeprazole 40 MG CAPCR PO (09:19)
[2019-12-17 15:11] LABS: COVID-19 RT-PCR UVMMC Result Negative (Negative)
--- NOTE | 2019-12-17 15:53 | NUR.NOTE ---
Patient transferred to [facility], Covid result faxed to [phone] Note:
== END 2019-12-17 09:12 | disposition short-term general hospital (02) ==
PROVIDERS: Internal Medicine; Emergency Provider Emergency Medicine; PCP Family Medicine
DX: I47.2 Ventricular tachycardia (principal); I48.92 Unspecified atrial flutter; R55 Syncope and collapse; R11.0 Nausea; Z03.818 Encounter for observation for suspected exposure to other biological agents ruled out; J44.9 Chronic obstructive pulmonary disease, unspecified; I47.1 Supraventricular tachycardia
CPT/HCPCS: 36415; 80053; 93005; 96372; 99220; 99285; U0003; 83735; 84484; 85025; 93010; J1650

== ENCOUNTER 2020-04-26 03:41 | Outpatient (CLI) | payer BC, SELFPAY ==
[2020-04-26 13:11] LABS: TSH (W/Ref FT4) 0.87 uIU/mL (0.36-3.74)
== END 2020-04-26 03:42 | disposition home or self-care (01) ==
LOC: LBO 03:41
PROVIDERS: PCP Family Medicine; Visit Provider Family Medicine
DX: E03.9 Hypothyroidism, unspecified (principal)
CPT/HCPCS: 36415; 84443

== ENCOUNTER 2020-09-28 17:09 | Outpatient (REF) | payer BC, SELFPAY ==
[2020-09-28 19:50] LABS: Bilirubin Negative (Negative); Blood Negative (Negative); Clarity Clear (Clear); Glucose Negative (Negative); Ketones Negative (Negative); Leukocyte Esterase Trace (Negative); Nitrite Negative (Negative); Specific Gravity 1.015 (1.005-1.025); Urobilinogen 0.2 EU/dL (Up TO 0.2); pH 5.5 (5-8)
[2020-09-28 20:13] LABS: RBC Negative HPF (0-2); WBC 20-50 HPF (0-5)
[2020-09-28 20:14] LABS: Bacteria Few HPF (Negative); C & S Indicated? No/Sq. Contamination; Casts Negative LPF (Negative); Crystals Negative HPF (Negative); Epithelial Cells Many HPF (Negative); Mucus Negative (Negative); Other Cells Negative (Negative)
== END 2020-09-28 17:10 | disposition home or self-care (01) ==
LOC: LBN 17:09
PROVIDERS: PCP Family Medicine; Visit Provider Family Medicine
DX: R35.0 Frequency of micturition (principal)
CPT/HCPCS: 81003; 81015

== ENCOUNTER 2021-01-21 03:27 | Outpatient (CLI) | payer BC, SELFPAY ==
[2021-01-21 13:28] LABS: TSH (W/Ref FT4) 1.17 uIU/mL (0.36-3.74)
== END 2021-01-21 03:28 | disposition home or self-care (01) ==
LOC: LBO 03:27
PROVIDERS: PCP Family Medicine; Visit Provider Family Medicine
DX: E03.9 Hypothyroidism, unspecified (principal); R00.2 Palpitations; L71.9 Rosacea, unspecified
CPT/HCPCS: 36415; 84443

== ENCOUNTER 2021-03-07 00:40 | Outpatient (CLI) | payer BC, SELFPAY ==
--- NOTE | 2021-03-07 14:45 | DI.MAMMO_ITS ---
Exam(s) MG MAMMO SCREENING 60 MIN DUR EXAM: MG MAMMO SCREENING 60 MIN DUR CLINICAL HISTORY: breast cancer screening,implants,z98.82,z12.31 TECHNIQUE: Mammograms were interpreted according to the usual protocol including computer analysis w ith CAD system, tomosynthesis and C-view imaging. Implant displaced views were performed in addition to the routine views. COMPARISON: 2011 through 2018 FINDINGS: The breasts are composed of scattered fibroglandular densities, Breast Density category B. No suspicious masses or suspicious microcalcifications are seen. No skin thickening or abnormal axillary lymph nodes are seen. There has been no significant change from prior exams. There are bilateral subpectoral breast implant s which appear intact. IMPRESSION: BI-RADS Category 1, Negative mammogram Yearly screening mammography is recommended. Breast Density - Category B, scattered fibroglandular densities. A negative radiographic report should not delay biopsy if a dominant or clinically suspicious mass is present. Up to ten percent of cancers are not identified on mammography. A negative report may reinforce clinical impression. Adenosis and dense breasts may obscure an underlying neoplasm. False positive reports average 6 to 10%. Patient will receive a letter notifying them of these results.
== END 2021-03-07 01:00 ==
PROVIDERS: PCP Family Medicine; Visit Provider Family Medicine
DX: Z12.31 Encounter for screening mammogram for malignant neoplasm of breast (principal); Z98.82 Breast implant status
CPT/HCPCS: 77063; 77067

== ENCOUNTER 2021-04-29 13:41 | Outpatient (CLI) | payer BC, SELFPAY ==
--- NOTE | 2021-04-29 13:30 | RT.EKG_ITS ---
APPROVED REPORT Exam: Resting ECG Reason for Exam: NPW Baseline needed Patient Location: O HR:71 bpm ECG Measurements Heart Rate 71 AXIS ME 185 P 77 QRSd 127 QRS -6 QT 535 T 20 QTc 582 Conclusion Sinus rhythm...normal P axis, V-rate 50- [address]-T abnormalities Long QTC
== END 2021-04-29 13:42 | disposition home or self-care (01) ==
LOC: DI.CARD 13:42
PROVIDERS: PCP Family Medicine; Visit Provider Internal Medicine Cardiovascular Disease
DX: R07.9 Chest pain, unspecified (principal)
CPT/HCPCS: 93010

== ENCOUNTER 2021-05-20 02:17 | Outpatient (CLI) | payer BC, SELFPAY ==
[2021-05-20 14:57] LABS: Hemoglobin A1C 6.4 % (<5.7)
[2021-05-20 15:47] LABS: ALT 35 U/L (14-59); AST 22 U/L (15-37); Albumin 3.6 g/dL (3.4-5.0); Alkaline Phosphatase 131 U/L (46-116); Anion Gap 7.4 mmol/L (3-11); BUN 13 mg/dL (7-18); Bilirubin, Total 0.4 mg/dL (0.2-1.0); CO2 30.6 mmol/L (21.0-32.0); CREATININE 0.7 mg/dL (0.55-1.02); Calcium 8.6 mg/dL (8.5-10.1); Calculated LDL 78 mg/dL (<100); Chloride 102 mmol/L (98-107); Cholesterol 180 mg/dL (<200); Glucose 103 mg/dL (74-106); HDL Cholesterol 65 mg/dL (40-60); Potassium 3.4 mmol/L (3.5-5.1); Sodium 140 mmol/L (136-145); TSH (W/Ref FT4) 2.86 uIU/mL (0.36-3.74); Total Protein 6.9 g/dL (6.4-8.2); Triglyceride 188 mg/dL (<150)
== END 2021-05-20 02:18 | disposition home or self-care (01) ==
LOC: LBO 02:17
PROVIDERS: PCP Family Medicine; Visit Provider Family Medicine
DX: E03.9 Hypothyroidism, unspecified (principal); I48.92 Unspecified atrial flutter; R07.9 Chest pain, unspecified; E11.9 Type 2 diabetes mellitus without complications
CPT/HCPCS: 36415; 80053; 80061; 83036; 84443

== ENCOUNTER 2021-09-02 01:06 | Outpatient (CLI) | payer BC, SELFPAY ==
[2021-09-02 12:52] LABS: TSH (W/Ref FT4) 0.08 uIU/mL (0.36-3.74)
[2021-09-02 13:10] LABS: FREE T4 1.21 ng/dL (0.76-1.46)
== END 2021-09-02 01:07 | disposition home or self-care (01) ==
LOC: LOS 01:06
PROVIDERS: PCP Family Medicine; Visit Provider Family Medicine
DX: E03.9 Hypothyroidism, unspecified (principal)
CPT/HCPCS: 36415; 84439; 84443

== ENCOUNTER 2021-12-08 03:00 | Outpatient (CLI) | payer BC, SELFPAY ==
[2021-12-08 16:14] LABS: ALT 31 U/L (14-59); AST 25 U/L (15-37); Albumin 3.6 g/dL (3.4-5.0); Alkaline Phosphatase 151 U/L (46-116); Anion Gap 6.5 mmol/L (3-11); BUN 14 mg/dL (7-18); Bilirubin, Total 0.4 mg/dL (0.2-1.0); CO2 30.5 mmol/L (21.0-32.0); CREATININE 0.8 mg/dL (0.55-1.02); Calcium 8.7 mg/dL (8.5-10.1); Chloride 102 mmol/L (98-107); Estimated GFR 88.05 (mL/min/1.73m2); Glucose 85 mg/dL (74-106); Potassium 3.6 mmol/L (3.5-5.1); Sodium 139 mmol/L (136-145); TSH (W/Ref FT4) 0.95 uIU/mL (0.36-3.74); Total Protein 7.7 g/dL (6.4-8.2)
== END 2021-12-08 03:01 | disposition home or self-care (01) ==
LOC: LBO 03:02
PROVIDERS: PCP Family Medicine; Visit Provider Family Medicine
DX: R00.0 Tachycardia, unspecified (principal); R00.2 Palpitations; Z00.00 Encounter for general adult medical examination without abnormal findings
CPT/HCPCS: 36415; 80053; 84443

== ENCOUNTER 2022-07-10 20:58 | Outpatient (REF) | payer BC, SELFPAY ==
[2022-07-10 22:09] LABS: Bilirubin Negative (Negative); Blood Negative (Negative); Clarity Clear (Clear); Glucose Negative (Negative); Ketones Negative (Negative); Leukocyte Esterase Negative (Negative); Nitrite Negative (Negative); Specific Gravity 1.025 (1.005-1.025); Urobilinogen 0.2 mg/dL (Up to 0.2); pH 5.5 (5-8)
== END 2022-07-10 20:59 | disposition home or self-care (01) ==
LOC: LBN 20:58
PROVIDERS: PCP Family Medicine; Visit Provider Nurse Practitioner Family
DX: R30.0 Dysuria (principal); R50.9 Fever, unspecified
CPT/HCPCS: 81003

== ENCOUNTER 2022-11-02 05:05 | Outpatient (CLI) | payer BC, SELFPAY ==
[2022-11-02 11:47] LABS: Hemoglobin A1C 6.1 % (<5.7)
[2022-11-02 12:03] LABS: ALT 45 U/L (14-59); AST 31 U/L (15-37); Albumin 3.7 g/dL (3.4-5.0); Alkaline Phosphatase 179 U/L (46-116); Anion Gap 7.5 mmol/L (3-11); BUN 13 mg/dL (7-18); Bilirubin, Total 0.4 mg/dL (0.2-1.0); CO2 30.5 mmol/L (21.0-32.0); CREATININE 0.8 mg/dL (0.55-1.02); Calcium 9.2 mg/dL (8.5-10.1); Calculated LDL 80 mg/dL (<100); Chloride 101 mmol/L (98-107); Cholesterol 204 mg/dL (<200); Glucose 120 mg/dL (74-106); HDL Cholesterol 55 mg/dL (40-60); Potassium 4.2 mmol/L (3.5-5.1); Sodium 139 mmol/L (136-145); Total Protein 7.7 g/dL (6.4-8.2); Triglyceride 348 mg/dL (<150)
== END 2022-11-02 05:06 | disposition home or self-care (01) ==
PROVIDERS: PCP Family Medicine; Visit Provider Family Medicine
DX: E11.9 Type 2 diabetes mellitus without complications (principal); I48.91 Unspecified atrial fibrillation; E03.9 Hypothyroidism, unspecified; E66.8 Other obesity
CPT/HCPCS: 36415; 80053; 80061; 83036

== ENCOUNTER 2022-11-07 08:52 | Outpatient (CLI) | payer BC, SELFPAY ==
[2022-11-07 12:37] LABS: TSH (W/Ref FT4) 0.68 uIU/mL (0.36-3.74)
[2022-11-10 12:33] LABS: Alkaline Phosphatase 171 U/L (35 - 104); Bone % 37.8 % (19.1-67.7); Intestine 7.2 IU/L (0.0-11.0); Intestine % 4.2 % (0.0-20.6); Liver % 53.3 % (27.8-76.3); Liver 2% 4.7 % (0.0-8.0)
== END 2022-11-07 08:53 | disposition home or self-care (01) ==
LOC: LOS 08:53
PROVIDERS: PCP Family Medicine; Referring Provider Family Medicine; Visit Provider Family Medicine
DX: R74.8 Abnormal levels of other serum enzymes (principal); E03.9 Hypothyroidism, unspecified
CPT/HCPCS: 36415; 84075; 84080; 84443

== ENCOUNTER 2022-11-24 01:23 | Outpatient (CLI) | payer BC, SELFPAY ==
--- NOTE | 2022-11-24 11:15 | DI.MAMMO_ITS ---
Exam(s) MG MAMMO SCREENING 60 MIN DUR EXAM: MG MAMMO SCREENING 60 MIN DUR CLINICAL HISTORY: breast cancer screening, implants,z12.39. TECHNIQUE: Bilateral full field digital CC and MLO mammographic images were obtained with 3D tomosyn thesis and utilizing computer aided detection (CAD). Both conventional and implant displacement views were performed COMPARISON: Prior mammograms were reviewed. FINDINGS: There are no CAD designations. There are no new spiculated masses nor malignant appearing microcalcification groups. Benign nodule in the lateral aspect of the right breast having appearance of benign intramammary lymp h node is unchanged There is no significant architectural distortion nor skin thickening-retraction. IMPRESSION: No radiographic evidence of malignancy. BI-RADS Category 1 - Negative Breast Density - Category B - Scattered areas of fibroglandular density Breast density Category C or D implies that the patient has dense breast tissue. Dense breast tissue can make it harder to find cancer on a mammogram. Dense breast tissue is also associated with an incr eased risk of breast cancer. This information about the result of the mammogram report was provided to the patient to raise their awareness. Use this report when you speak with the patient about their risks for breast cancer, which includes their family history. At that time, you may recommend additional screening tests (Ultrasoun d or MRI) as these tests may add significant information. A negative radiographic report should not delay biopsy if a dominant or clinically suspicious mass is present. Up to ten percent of cancers are not identified on mammography. A negative report may reinforce clinical impression. Adenosis and dense breasts may obscure an underlying neoplasm. False positive reports average 6 to 10%. Patient will receive a letter notifying them of these results.
== END 2022-11-24 01:43 ==
LOC: DI 01:23
PROVIDERS: PCP Family Medicine; Visit Provider Family Medicine
DX: Z12.31 Encounter for screening mammogram for malignant neoplasm of breast (principal)
CPT/HCPCS: 77063; 77067

== ENCOUNTER 2022-11-30 10:12 | Outpatient (CLI) | payer BC, SELFPAY ==
[2022-11-30 12:09] LABS: ALT 40 U/L (14-59); AST 33 U/L (15-37); Albumin 3.9 g/dL (3.4-5.0); Alkaline Phosphatase 178 U/L (46-116); Anion Gap 6.2 mmol/L (3-11); BUN 8 mg/dL (7-18); Bilirubin, Total 0.4 mg/dL (0.2-1.0); CO2 28.8 mmol/L (21.0-32.0); CREATININE 0.8 mg/dL (0.55-1.02); Calcium 9.5 mg/dL (8.5-10.1); Chloride 102 mmol/L (98-107); GGT 24 U/L (5-55); Glucose 109 mg/dL (74-106); Potassium 3.8 mmol/L (3.5-5.1); Sodium 137 mmol/L (136-145); Total Protein 7.6 g/dL (6.4-8.2)
[2022-11-30 20:02] LABS: Rheumatoid Factor <8.6 IU/mL (<12.0)
[2022-12-01 09:16] LABS: AFP Tumor Marker <2.5 ng/mL (<8.1)
[2022-12-01 15:10] LABS: ANA Interpretation Negative (Negative)
[2022-12-04 09:02] LABS: Result Summary NEGATIVE; Specimen WB Whole Blood
[2022-12-04 17:02] LABS: LA Cascade Summary (See Note)
== END 2022-11-30 10:13 | disposition home or self-care (01) ==
LOC: LOS 10:13
PROVIDERS: PCP Family Medicine; Referring Provider Family Medicine; Visit Provider Family Medicine
DX: R74.8 Abnormal levels of other serum enzymes (principal); I10 Essential (primary) hypertension
CPT/HCPCS: 36415; 80053; 81256; 87116; 82105; 82977; 86038; 86431

== ENCOUNTER → 2022-12-14 01:24 | Outpatient (CLI) | payer BC, SELFPAY ==
--- NOTE | 2022-12-14 15:15 | DI.DEXA_ITS ---
Exam(s) XR DEXA BONE DENSITY W/WO DON EXAM: XR DEXA BONE DENSITY W/WO DON CLINICAL HISTORY: postmenopausal Z78.0 TECHNIQUE: HoloUmbel Horizon C densitometer analysis of left hip, lumbar spine and left forearm. Lat eral survey image of the thoracic and lumbar spine. COMPARISON: MR MRI - LUMBAR SPINE WO CONTRAST from 12/31/2015 FINDINGS: Lateral view of the thoracic and lumbar spine shows no evidence of compression fractures. Bone mineral density measurements of the lumbar spine correspond to a total T-score of -1.5, in the osteopenic range. Bone mineral density measurements of the left hip correspond to a total T-score of -1.3. The femora l neck T-score is -2.2, in the osteopenic range.. Theleft forearm bone mineral density measurements correspond to a T-score of the distal 3rd of -1.2, in the osteopenic range.. IMPRESSION: Osteopenia of the lumbar spine, hip and forearm.
== END ==
PROVIDERS: PCP Family Medicine; Visit Provider Family Medicine
DX: Z13.820 Encounter for screening for osteoporosis (principal); Z78.0 Asymptomatic menopausal state; M85.89 Other specified disorders of bone density and structure, multiple sites
CPT/HCPCS: 77080

== ENCOUNTER 2023-01-15 08:45 | Outpatient (CLI) | payer BC, SELFPAY ==
--- NOTE | 2023-01-15 08:45 | RT.EKG_ITS ---
APPROVED REPORT Exam: Resting ECG Reason for Exam: afib Patient Location: O HR:75 bpm ECG Measurements Heart Rate 75 AXIS NE 193 P [id number] QRSd 85 QRS 30 QT 409 T [id number] QTc 457 Conclusion Atrial-paced complexes...other complexes also detected RSR' in V1 or V2
== END 2023-01-15 08:46 | disposition home or self-care (01) ==
LOC: DI.CARD 08:46
PROVIDERS: PCP Family Medicine; Visit Provider Internal Medicine Cardiovascular Disease
DX: I48.91 Unspecified atrial fibrillation (principal)
CPT/HCPCS: 93010

== ENCOUNTER 2023-05-17 15:13 | Emergency (ER) | payer BC, SELFPAY ==
--- NOTE | 2023-05-17 15:15 | RT.EKG_ITS ---
APPROVED REPORT Exam: Resting ECG Reason for Exam: Arhythmia Patient Location: E HR:85 bpm ECG Measurements Heart Rate 85 AXIS NV 156 P 62 QRSd 81 QRS 9 QT 398 T 212 QTc 473 Conclusion Sinus rhythm.., V-rate 60- 99 Abnormal T, consider ischemia, diffuse leads...T <-0.20mV, ant/lat/inf no ST segment or T wave abnormalities to suggest occluisve DC
[2023-05-17 15:17] VITALS: BP 132/92; PULSE 92; RESP 16; TEMP 36.6; O2SAT 95
--- NOTE | 2023-05-17 15:30 | DI.CT_ITS ---
Exam(s) CT ABDOMEN PELVIS W EXAM: CT ABDOMEN PELVIS W CLINICAL HISTORY: N/V/D x 4 days, epigastric/peribumbilical pain. TECHNIQUE: Imaging Protocol: Axial computed tomography images with coronal and sagittal reformatted images were created and reviewed CONTRAST MATERIAL: Intravenous: Omnipaque-350 100cc Oral: None COMPARISON: CT ABD/PELVIS WO W CONTRAST from 01/18/2016 FINDINGS: VISUALIZED LUNG BASES: No nodules nor pleural effusions evident. Heart size normal. No pericardial effusion. There are pacemaker wires in the right ventricle. Bilateral saline breast implants noted. ABDOMEN: There is no ascites. There are surgical clips in the epigastric region LIVER: The liver is hypodense implying steatosis. There are no discrete focal hepatic lesions. No d ilated intrahepatic ducts. GALLBLADDER/BILIARY: The gallbladder surgically absent. CBD is not dilated. PANCREAS: No evidence of pancreatic mass nor dilatation of the pancreatic duct. SPLEEN: Spleen is not enlarged. No obvious intrasplenic lesions. Splenic and portal veins are paten t. ADRENALS: There are no significant adrenal masses. KIDNEYS:Parapelvic cysts in the right kidney are again noted. No solid renal masses. No calculi nor hydronephrosis evident. No hydroureter.. ABDOMINAL AORTA: Abdominal aorta is not enlarged. LYMPH NODES:There is no retroperitoneal nor paraaortic adenopathy. ABDOMINAL WALL: No evidence of significant anterior abdominal wall nor inguinal hernia. GI: There is evidence of prior small bowel surgery in the right-side of the abdomen. No obvious abno rmality at the anastomosis. No free air, fluid, nor abscess. PELVIS: GI: The appendix is surgically absent. There are few slightly prominent lymph nodes in the mesoappen rylan region.No evidence of sigmoid diverticulitis. LYMPH NODES: No adenopathy around the aortic bifurcation nor along the iliac chains and there is no i nguinal adenopathy. REPRODUCTIVE: Uterus again noted be surgically absent. No abnormal adnexal masses nor free fluid in the pelvis. URINARY BLADDER: No calculi nor obvious masses evident OSSEOUS: No fractures and no significant osseous lesions. IMPRESSION: 1. Compared to the prior CT scan of 2015 there is again noted evidence of previous cholecystectomy, a ppendectomy, and hysterectomy and surgery in the region of the GE junction. There is also again note d evidence of small bowel surgery with anastomoses. 2. There are multiple small bowel loops which are fluid-filled and exhibit upper normal diameters. T here is no obvious high-grade bowel obstruction. No free air. No abscess. Correlation with any his tory of inflammatory bowel disease recommended. 3. Hepatic steatosis evident. Liver size slightly increased. No focal hepatic lesions evident. No significant dilatation of the biliary tree. 4. Cardiac pacemaker wires incidentally noted. Called by myself to ER physician. RADIATION DOSE DELIVERED: Total DLP DATA REPOSITORY: All CT scans at this facility are submitted to the National Radiology Data Registry (NRDR) Dose Index Registry (DIR) with the [employer] (ACR). RADIATION OPTIMIZATION: All CT scans at this facility use at least one of these dose optimization te chniques: automated exposure control; mA and/or kV adjustment per patient size (includes targeted exa ms where dose is matched to clinical indication); or iterative reconstruction.
--- NOTE | 2023-05-17 16:09 | ED.GENADUL_ITS ---
Discharge Plan Disposition Patient Disposition: Home Condition: Good Discharge Details Clinical Impression: Gastroenteritis Primary Care Provider: Lilliana Campo ED Provider: Nusrat Whiteside Home Meds and New Rx's Prescriptions: New metoclopramide HCl [Reglan] 10 mg tablet 10 mg PO Q6H PRNQty: 12 0RF Continued acetaminophen [Mapap Extra Strength] 500 mg tablet 1,000 mg PO TID PRN metoprolol succinate 25 mg tablet extended release 24 hr 12.5 mg PO QHS Qty: 90 4RF atorvastatin 40 mg tablet 40 mg PO QHS Qty: 90 5RF prednisone 5 mg tablet 5 mg PO DAILY Qty: 49 0RF Hold Instructions: n/v Rx Instructions: 40mg x 2 days, 30mg x 2 days, 20mg x 2 days, 15 mg x 2 days, 10 mg x 2 days, 5 mg x 2 days, 2.5 mg x 2 days. amitriptyline 25 mg tablet 25 mg PO BID Qty: 180 5RF dofetilide [Tikosyn] 500 mcg capsule 500 mcg PO Q12H Qty: 180 4RF estradiol [Yuvafem] 10 mcg tablet 10 mcg vaginal .3 times weekly Qty: 36 4RF estradiol [Estrace] 0.01 % (0.1 mg/gram) cream 1 appful vaginal DAILY PRN (Reason: vaginal pain) Qty: 42.5 3RF Rx Instructions: use when left vaginal wall is irritated gabapentin 400 mg capsule 400 mg PO BID Qty: 180 4RF levothyroxine 125 mcg tablet 125 mcg PO DAILY Qty: 90 4RF mirabegron 50 mg tablet extended release 24 hr 50 mg PO DAILY Qty: 90 4RF esomeprazole magnesium [Nexium] 40 mg capsule,delayed release(DR/EC) 40 mg PO DAILY Qty: 90 12RF famotidine 20 mg tablet 20 mg PO DAILY PRN (Reason: heartburn) Qty: 90 4RF nystatin 100,000 unit/gram powder 1 applic topical BID Qty: 60 4RF Eliquis 5 mg tablet 5 mg PO BID prednisone 20 mg tablet 40 mg PO DAILY Qty: 10 4RF Hold Instructions: n/v duloxetine 30 mg capsule,delayed release(DR/EC) 30 mg PO DAILY Qty: 90 5RF Discontinued scopolamine base 1 mg over 3 days patch 3 day 1 patch transdermal Q3D PRN (Reason: nausea and vomiting) Qty: 4 0RF promethazine 12.5 mg tablet 12.5 mg PO Q6H PRN Qty: 60 0RF Discharge Instructions Instructions: Gastroenteritis (ED) Additional Instructions: Reglan up to every 6 hours as needed for nausea. Call your primary care doctor tomorrow to schedule an appointment within the n ext 3 days to followup on your visit here. Call your supervisor knitting tomorrow to schedule an appointment to follow up on your EKG that was done here today. Return to the emergency department for new or worsening symptoms including fever, new/worse/different abdominal pain, chest pain, difficulty breathing, feeling like you are going to pass out, or if you have any other concerns. Referrals: Lilliana Campo [place], [place] [Primary Care Provider] - [facility] General Mode of arrival: ambulatory . Date/Time Provider Initiated Documentation: 05/17/23 15:16 . Limitations to Documentation: no limitations . Information obtained by: patient . HPI Narrative: 53yo F with hx hypothyroid, COPD, GERD, pacer in place, hx multiple abdominal surgeries, presenting for N/V/D for the last four days. Having episodes of diarrhea and vomiting around 6-8 times a day, nonbloody nonbilious emesis and watery diarrhea. Has been able to keep down minimal fluids, no solids. Has mild crampy dull epigastric pain, otherwise no abdominal pain. Feels slightly lightheaded when she stands up. No fevers, chills, rash, dysuria, hematuria, numbness, tingling, focal weakness, chest pain, shortness of breath, or other concerns. Related Data Home Medications Medication Instructions Recorded Confirmed acetaminophen 500 mg tablet (Mapap 1,000 mg PO TID PRN 12/12/18 05/17/23 Extra Strength) apixaban 5 mg tablet (Eliquis) 5 mg PO BID 07/10/22 05/17/23 amitriptyline 25 mg tablet 25 mg PO BID #180 tabs 11/07/22 05/17/23 dofetilide 500 mcg capsule 500 mcg PO Q12H #180 caps 11/07/22 05/17/23 (Tikosyn) esomeprazole magnesium 40 mg 40 mg PO DAILY #90 tab-caps 11/07/22 05/17/23 capsule,delayed release (Nexium) estradiol 0.01% (0.1 mg/gram) 1 appful vaginal DAILY PRN vaginal 11/07/22 05/17/23 vaginal cream (Estrace) pain #42.5 grams estradiol 10 mcg vaginal tablet 10 mcg vaginal .3 times weekly #36 11/07/22 05/17/23 (Yuvafem) tabs famotidine 20 mg tablet 20 mg PO DAILY PRN heartburn #90 11/07/22 05/17/23 tabs gabapentin 400 mg capsule 400 mg PO BID #180 caps 11/07/22 05/17/23 levothyroxine 125 mcg tablet 125 mcg PO DAILY #90 tabs 11/07/22 05/17/23 mirabegron 50 mg tablet,extended 50 mg PO DAILY #90 tabs 11/07/22 05/17/23 release 24 hr nystatin 100,000 unit/gram topical 1 applic topical BID #60 grams 11/07/22 05/17/23 powder atorvastatin 40 mg tablet 40 mg PO QHS #90 tabs 11/30/22 05/17/23 metoprolol succinate 25 mg 12.5 mg (1/2 x 25 mg) PO QHS #90 11/30/22 05/17/23 tablet,extended release 24 hr tabs prednisone 20 mg tablet 40 mg (2 x 20 mg) PO DAILY #10 tabs 01/30/23 05/17/23 duloxetine 30 mg capsule,delayed 30 mg PO DAILY #90 caps 04/16/23 05/17/23 release prednisone 5 mg tablet 5 mg PO DAILY #49 tabs 05/11/23 05/17/23 metoclopramide HCl 10 mg tablet 10 mg PO Q6H PRN #12 tabs 05/17/23 (Reglan) Previous Rx's Medication Instructions Recorded amitriptyline 25 mg tablet 25 mg PO BID #180 tabs 11/07/22 dofetilide 500 mcg capsule 500 mcg PO Q12H #180 caps 11/07/22 (Tikosyn) esomeprazole magnesium 40 mg 40 mg PO DAILY #90 tab-caps 11/07/22 capsule,delayed release (Nexium) estradiol 0.01% (0.1 mg/gram) 1 appful vaginal DAILY PRN vaginal 11/07/22 vaginal cream (Estrace) pain #42.5 grams estradiol 10 mcg vaginal tablet 10 mcg vaginal .3 times weekly #36 11/07/22 (Yuvafem) tabs famotidine 20 mg tablet 20 mg PO DAILY PRN heartburn #90 11/07/22 tabs gabapentin 400 mg capsule 400 mg PO BID #180 caps 11/07/22 levothyroxine 125 mcg tablet 125 mcg PO DAILY #90 tabs 11/07/22 mirabegron 50 mg tablet,extended 50 mg PO DAILY #90 tabs 11/07/22 release 24 hr nystatin 100,000 unit/gram topical 1 applic topical BID #60 grams 11/07/22 powder atorvastatin 40 mg tablet 40 mg PO QHS #90 tabs 11/30/22 metoprolol succinate 25 mg 12.5 mg (1/2 x 25 mg) PO QHS #90 11/30/22 tablet,extended release 24 hr tabs prednisone 20 mg tablet 40 mg (2 x 20 mg) PO DAILY #10 tabs 01/30/23 duloxetine 30 mg capsule,delayed 30 mg PO DAILY #90 caps 04/16/23 release prednisone 5 mg tablet 5 mg PO DAILY #49 tabs 05/11/23 metoclopramide HCl 10 mg tablet 10 mg PO Q6H PRN #12 tabs 05/17/23 (Reglan) Allergies Allergy/AdvReac Type Severity Reaction Status Date / Time erythromycin base Allergy Severe Anaphylaxsis, Verified 05/17/23 15:20 hives Sulfa (Sulfonamide Allergy Mild Skin Rash Verified 05/17/23 15:20 Antibiotics) povidone-iodine AdvReac Intermediate Skin Rash Verified 05/17/23 15:20 [From Betadine] soap [From Betadine] AdvReac Intermediate Skin Rash Verified 05/17/23 15:20 tramadol AdvReac Intermediate incoherent Verified 05/17/23 15:20 General Stated Complaint: Abd Prob KERRIE: 3 Review of Systems Narrative: see HPI Exam Narrative Exam Narrative: General: Alert, well appearing, well nourished, in no acute distress. Head: Normocephalic, atraumatic Neck: Trachea midline, ?Neck supple. ENT: ?Dry MM.? Cardiac: ?RRR, no murmurs appreciated Resp: No respiratory distress. CTAB. Abd: ?Soft, non-distended, epigastrium TTP with no rebound or guarding. : ?No suprapubic tenderness. Extremities: ?No deformities.? No peripheral edema. Neurologic: GCS 15. ? Moves all extremities freely against gravity Course Vital Signs Vital signs: Vital Signs Temperature 36.6 C 05/17/23 15:17 Pulse 92 H 05/17/23 15:17 Respiratory Rate 16 05/17/23 15:17 Blood Pressure 132/92 H 05/17/23 15:17 Pulse Oximetry 95 05/17/23 15:17 Temperature 36.6 C 05/17/23 15:17 Temperature Source Temporal Artery Scan 05/17/23 15:17 Pulse 92 H 05/17/23 15:17 Respiratory Rate 16 05/17/23 15:17 Respiratory Effort Normal, Non-Labored 05/17/23 15:22 Blood Pressure 132/92 H 05/17/23 15:17 Blood Pressure Position Sitting 05/17/23 15:17 Pulse Oximetry 95 05/17/23 15:17 Oxygen Delivery Method Room Air 05/17/23 15:17 Oxygen Flow Rate 0 05/17/23 15:17 Pain Level 6 05/17/23 15:17 Medical Decision Making 53yo F with hx hypothyroid, COPD, GERD, pacer in place, hx multiple abdominal surgeries, presenting for N/V/D for the last four days. Having episodes of diarrhea and vomiting around 6-8 times a day, nonbloody nonbilious emesis and watery diarrhea. Has been able to keep down minimal fluids, no solids. Vital signs reassuring on arrival, on exam she has slightly dry mucous membranes and mild epigastric tenderness with no peritoneal signs. Given 1L IVFB, will start D51/2NS mIVF after completion. Given IV zofran for nausea/vomiting, patient with no further vomiting but still nauseated and uncomfortable. Will try reglan. EKG on arrival with appropriate intervals, no ST segment or T wave abnormalities to suggest occlusive MT; does have slight ST depressions in I, II, V2-V5 which are not present on prior EKGs. Labs reviewed as below CBC with leukocytosis to 14 (though does appear somewhat hemoconcentrated), CMP with borderline acidosis bicarb 20.0 and elevated gap at 16 with lactate reassuring at 1.4 and BUN elevated at 29 (likely source of gap). Cr is normal. Consistent with intravascular volume depletion. UA with neg nitrate and leuk estrace, does have some WBC at 10-20. Patient denies any urinary symptoms and UA is equivocal for infection; sent for culture. In the absence of urinary symptoms will not treat empircially at this time. CT abd/pelvis independently reviewed, no obstruction or free fluid on my view; discussed with radiology Dr. Kelsey and agree with radiology read below. Repeat troponin negative. Repeat EKG unchanged from initial EKG here and patient without chest pain or shortness of breath at any point. Discussed with patient and advised cardiology followup; does follow with Dr. Delgadillo here. On reassessment patient reports feeling much better. Repeat abdominal exam remains reassuring with only minimal tenderness. PO challenged and tolerated well. She is requesting discharge home which is not unreasonable; discharged with short course of reglan and instructed to followup with PCP and cardiology. Discharge instructions and return precautions were reviewed with patient who verbalized understanding. All questions were answered and she is in full agreement with the plan. Imaging Data Radiologic Study: Imaging: CT Scan Radiologist's impression: IMPRESSION: 1. Compared to the prior CT scan of 2016 there is again noted evidence of previous cholecystectomy, appendectomy, and hysterectomy and surgery in the region of the GE junction. There is also again noted evidence of small bowel surgery with anastomoses. 2. There are multiple small bowel loops which are fluid-filled and exhibit upper normal diameters. There is no obvious high-grade bowel obstruction. No free air. No abscess. Correlation with any history of inflammatory bowel disease recommended. 3. Hepatic steatosis evident. Liver size slightly increased. No focal hepatic lesions evident. No significant dilatation of the biliary tree. 4. Cardiac pacemaker wires incidentally noted. Lab Data Lab results reviewed: Yes I reviewed the patient's lab results. Labs: 05/17/23 16:16 Urine - Reflex from Ua Urine Culture - Pending Laboratory Tests Range/Units 05/17/23 05/17/23 16:10 16:16 WBC (4.4-10.8) 10^3/uL 14.02 H RBC (3.93-5.22) 10^6/uL 5.51 H Hgb (11.2-15.7) g/dL 16.8 H Hct (36.0-46.0) % 49.4 H MCV (80-95) fL 90 MCH (27.0-33.0) pg 30.5 MCHC (32.0-36.0) % 34.0 RDW (11.7-14.6) % 13.1 Plt Count (130-400) 10^3/uL 336 MPV (8.0-11.0) fL 9.2 Immature Gran % 0.3 Neutrophils % 63.8 Lymphocytes % 26.3 Monocytes % 7.7 Eosinophils % 1.5 Basophils % 0.4 Nucleated RBC % (0.0-0.3) % 0.0 Absolute Neutrophils (1.2-6.7) 10^3/uL 8.94 H Absolute Lymphocytes (1.2-3.4) 10^3/uL 3.69 H Absolute Monocytes (0.1-0.8) 10^3/uL 1.08 H Absolute Eosinophils (0.0-0.7) 10^3/uL 0.21 Absolute Basophils (0.0-0.2) 10^3/uL 0.06 VBG Lactate (0.6-1.4) mmol/L 1.4 Sodium (136-145) mmol/L 136 Potassium (3.5-5.1) mmol/L 3.5 Chloride (98-107) mmol/L 100 Carbon Dioxide (21.0-32.0) mmol/L 20.0 L Anion Gap (3-11) mmol/L 16.0 H BUN (7-18) mg/dL 29 H Creatinine (0.55-1.02) mg/dL 1.0 Est GFR (CKD-EPI 2020) (mL/min/1.73m2) 66.53 Glucose (74-106) mg/dL 116 H Calcium (8.5-10.1) mg/dL 9.3 Total Bilirubin (0.2-1.0) mg/dL 1.0 AST (15-37) U/L 20 ALT (14-59) U/L 25 Alkaline Phosphatase (46-116) U/L 188 H Troponin I (< or =60) ng/L < 50 NT-Pro-B Natriuret Pep (<300) pg/mL 43 Total Protein (6.4-8.2) g/dL 8.7 H Albumin (3.4-5.0) g/dL 4.1 Lipase (16-77) U/L 29 TSH (0.36-3.74) uIU/mL 1.12 Urine Color (Yellow) Yellow Urine Clarity (Clear) Sl Cloudy Urine pH (5-8) 6.0 Ur Specific [place] (1.005-1.025) 1.025 Urine Protein (Neg-Trace) mg/dL 30 H Urine Ketones (Negative) mg/dL Negative Urine Blood (Negative) Trace-lysed H Urine Nitrite (Negative) Negative Urine Bilirubin (Negative) Small H Urine Urobilinogen (Up to 0.2) mg/dL 0.2 Ur Leukocyte Esterase (Negative) Negative Urine RBC (0-2) HPF 0-2 Urine WBC (0-5) HPF 10-20 H Ur Epithelial Cells (Negative) HPF Few Urine Crystals (Negative) HPF Negative Urine Bacteria (Negative) HPF Moderate Urine Casts (Negative) LPF 0-2 Hyaline Urine Mucus (Negative) Moderate Urine Other (Negative) Rare Transitional Ur Culture Indicated? Yes Urine Glucose (Negative) mg/dL Negative Quality:SDOH Health Related Social Needs: No Data to Display PFSH All Active Problems (Updated 05/17/23 @ 19:59 by Nusrat Whiteside MD) Gastroenteritis (Acute) Intractable nausea and vomiting (Acute) Fatty liver (Acute) Elevated liver enzymes (Acute) Elevated alkaline phosphatase level (Acute) Atrial fibrillation and flutter (Acute) Diabetes mellitus (Chronic) Obesity (BMI 30.0-34.9) (Acute) Pacemaker (Acute) 05/2020 [facility] [place] Chest pain (Acute) H/O breast augmentation (Acute) PSVT (paroxysmal supraventricular tachycardia) (Acute) Syncope (Chronic) Paroxysmal atrial flutter (Acute) Tachycardia (Acute) 8 beat run of v tach Palpitations (Acute) Right shoulder pain (Acute) Bladder irritability (Acute) Vaginal bleeding (Acute) Rash (Acute) Annual physical exam (Acute) Atypical pigmented skin lesion (Acute 05/04/15) 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) Fibromyalgia (Acute 03/11/14) Headache (Acute 11/08/10) Lichen planus-like dermatitis (Acute 05/05/14) Pain of right hip (Acute 04/24/16) Radial styloid tenosynovitis of right hand (Acute 09/04/16) Weakness of left lower extremity (Chronic 12/27/15) CONFIRMED EMG PER BELKIS Tinnitus (Chronic 06/22/14) Rosacea (Chronic 01/27/13) Palpitations (Chronic 01/27/13) Myalgia and myositis, unspecified (Chronic 05/27/13) EMG studies - left sided weakness seeing rheum 09/12/13 seen by neurology [facility] [place] Irritable colon (Chronic) Hypothyroidism (Chronic 09/16/12) S/P Grave's disease w/GONZALEZ [place]. GERD (gastroesophageal reflux disease) (Chronic) Lap keira x 2 ('95) Frequent falls (Chronic 12/27/15) Fatigue (Chronic 10/09/13) Esophageal dysmotility (Chronic) Decreased hearing of both ears (Chronic 04/30/14) Chronic obstructive lung disease (Chronic 02/25/13) PFT FEV1 71% Chronic low back pain with left-sided sciatica (Chronic 12/27/15) Bowel and bladder incontinence (Chronic 12/27/15) ?hydronephrosis by MRI. Blurring of visual image of both eyes (Chronic 01/04/15) eye exam normal Asthma (Chronic 06/11/14) Medical History Shoulder pain, right Abdominal pain Ankle edema (01/27/13) Closed nondisplaced fracture of neck of left radius (07/24/16) Disorder of gallbladder Dysmenorrhea (11/20/14) Heart murmur Herpes zoster without complication (11/02/16) Hypokalemia (10/18/15) Kidney stone (01/04/05) Neck pain (11/08/10) Pain of left breast (03/22/17) Pain of right thumb (10/02/16) Right lower quadrant pain (03/27/12) Disorder of gallbladder Abdominal pain Heart murmur h/o systolic murmur Cervicalgia 11/08/10 Right lower quadrant pain 03/27/12 Ankle edema 01/27/13 us neg times 1 occurred since long distance flight. bro recently dx w/PE Dysmenorrhea 11/20/14 Right lower quadrant pain (11/20/14) Right hip pain (04/24/16) Rash (06/22/14) Pain of right thumb (10/02/16) Neck pain (01/05/04) left C7-8; intense suboccipital; MRI 04/09 L4-5 Meckel's diverticulum (01/04/03) s/p surgical repair. Lichen planus-like dermatitis (05/05/14) testing hep c Kidney stone (01/04/05) Hypokalemia (10/18/15) Herpes zoster without complication (11/02/16) Headache (11/08/10) Fibromyalgia syndrome (03/11/14) per retail manager Kishan 03/22 Facial twitching (06/22/14) Dysmenorrhea (11/20/14) De Quervain's tenosynovitis, right (09/04/16) Cyst of right ovary (11/20/14) Nondisplaced fracture of neck of left radius, initial encounter for closed fracture (07/24/16) Breast pain, left (03/22/17) Atypical mole (05/04/15) Arthralgia (03/03/14) Annual physical exam (07/31/17) Ankle edema (01/27/13) us neg times 1 occurred since long distance flight bro recently dx w/ PE Actinic keratoses (05/01/17) History of Graves' disease 1998 Rx with I131 and Thyroid replacement. Abdominal pain, right lower quadrant Episodic prior to menses. Requires Dilaudid and NSAIDs for relief. 11/18/2014 ED visit for constant pain. R sided ovarian cyst. Surgical History H/O breast surgery H/O breast augmentation History of bilateral ligation of fallopian tubes History of breast augmentation History of unilateral oophorectomy Status post Keira fundoplication Status post appendectomy Status post cholecystectomy Status post hernia repair Status post tonsillectomy and adenoidectomy Status post vaginal hysterectomy (03/03/15) S/P tonsillectomy and adenoidectomy Status post Keira fundoplication History of gynecologic surgery cryotherapy, manual rupture of right ovarian cyst 2002 H/O breast augmentation S/P hernia repair with mesh placement S/P appendectomy History of bilateral tubal ligation 02/06/96 H/O surgical procedure 02/05/98 radioactive implant S/P cholecystectomy 02/05/09 [facility] [place] S/P vaginal hysterectomy L ovary remains History of oophorectomy, unilateral 11/05/14 right Tonsillectomy and adenoidectomy Procedures CERVICAL LES CRYOTHERAPY Keira Fundoplication Vaginal hysterectomy (03/03/15) [facility]. Previously had R ophorectomy and bilateral salpingectomy. Repair of umbilical hernia with mesh. Dr. Milton. Diagnostic Laproscopy (08/07/02) RLQ pain. Nl pelvis and ovaries. No ovarian cysts. minimal pelvic endometriosis. Cholecystectomy 2009 [facility] [place]. Cholecystectomy Augmentation mammoplasty Appendectomy 2007 [facility] [place] with repair of Meckels diverticulum. Family History Mother , 69 Lung cancer Father , 72 Diabetes Essential hypertension Liver cancer Prostate cancer Sister No problems noted. Brother Diabetes Essential hypertension Hyperlipidemia Brother Diabetes Essential hypertension Hyperlipidemia Alcohol abuse Maternal Grandfather Diabetes Myocardial infarction Throat cancer Paternal Grandfather Diabetes Heart disease Prostate cancer Bone cancer Maternal Grandmother Heart disease Myocardial infarction Stroke Paternal Grandmother Stroke Rectal cancer Stomach cancer Bowel cancer Daughter No problems noted. Daughter Epilepsy Daughter No problems noted. 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 Pets and animals: Yes Pets and animals: cat(s) and dog(s) Sexually active: Yes Do you think of yourself as: straight/heterosexual Current gender identity: female What is your relationship status?: How often do you talk on the phone with friends or family?: three or more times per week How often do you get together with friends or relatives?: twice per week How often do you attend congregation or adventism services?: 1-3 times per year Do you belong to any clubs or organized social groups?: no Panel score (0-1 are the most socially isolated patients): 2 What type of physical activity do you participate in: walking Duration: 15-30 minutes/day Frequency: daily Dionna/Shinto: Taoist Special dionna needs: No Seatbelt use: always Helmet use: Yes Helmet use: always Drive intox 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
[2023-05-17 16:18] LABS: Abs Immature Grans 0.04 10^3/uL (0.0-0.06); Absolute Eosinophil Count 0.21 10^3/uL (0.0-0.7); Absolute Lymphocyte Count 3.69 10^3/uL (1.2-3.4); Absolute Monocyte Count 1.08 10^3/uL (0.1-0.8); Basophils % 0.4; Eosinophils % 1.5; HCT 49.4 % (36.0-46.0); HGB 16.8 g/dL (11.2-15.7); Immature Grans % 0.3; Lactate 1.4 mmol/L (0.6-1.4); Lymphocytes % 26.3; MCH 30.5 pg (27.0-33.0); MCV 90 fL (80-95); MPV 9.2 fL (8.0-11.0); Monocytes % 7.7; Neutrophils % 63.8; Platelet Count 336 10^3/uL (130-400); RBC 5.51 10^6/uL (3.93-5.22); RDW 13.1 % (11.7-14.6); RDW-SD 42.8 fL; WBC 14.02 10^3/uL (4.4-10.8)
[2023-05-17] MEDS: Normal Saline 1,000 ML 1000 ML IV (16:18)
[2023-05-17 16:19] LABS: Absolute Basophil Count 0.06 10^3/uL (0.0-0.2); Absolute Neutrophil Count 8.94 10^3/uL (1.2-6.7)
[2023-05-17 16:22] LABS: Bilirubin Small (Negative); Blood Trace-lysed (Negative); Clarity Sl Cloudy (Clear); Glucose Negative (Negative); Ketones Negative (Negative); Leukocyte Esterase Negative (Negative); Nitrite Negative (Negative); Specific Gravity 1.025 (1.005-1.025); Urobilinogen 0.2 mg/dL (Up to 0.2)
[2023-05-17] MEDS: Ondansetron 4 MG/2 ML VIAL IVP (16:24)
[2023-05-17 16:33] LABS: Bacteria Moderate HPF (Negative); C & S Indicated? Yes; Casts 0-2 Hyaline LPF (Negative); Crystals Negative HPF (Negative); Epithelial Cells Few HPF (Negative); Mucus Moderate (Negative); Other Cells Rare Transitional (Negative); RBC 0-2 HPF (0-2)
[2023-05-17 16:51] LABS: ALT 25 U/L (14-59); AST 20 U/L (15-37); Albumin 4.1 g/dL (3.4-5.0); Alkaline Phosphatase 188 U/L (46-116); BUN 29 mg/dL (7-18); Calcium 9.3 mg/dL (8.5-10.1); Chloride 100 mmol/L (98-107); Estimated GFR 66.53 (mL/min/1.73m2); Glucose 116 mg/dL (74-106); Lipase 29 U/L (16-77); NT-proBNP 43 pg/mL (<300); Potassium 3.5 mmol/L (3.5-5.1); Sodium 136 mmol/L (136-145); TSH (W/Ref FT4) 1.12 uIU/mL (0.36-3.74); Total Protein 8.7 g/dL (6.4-8.2); Troponin I < 50 ng/L (< or =60)
[2023-05-17] MEDS: Omnipaque 350 MG/ML 100 ML BTL IJ (17:00)
[2023-05-17] MEDS: Normal Saline - Diluent 50 ML VIAL IJ (17:00)
[2023-05-17] MEDS: Normal Saline Flush 10 ML SYR IVP ×2 (17:03→17:06)
[2023-05-17] MEDS: Metoclopramide 10 MG/2 ML VIAL IVP (17:41)
[2023-05-17] MEDS: DEXTROSE 5%-0.45% SALINE 1,000 ML 150 ML IV (17:56)
--- NOTE | 2023-05-17 19:00 | RT.EKG_ITS ---
APPROVED REPORT Exam: Resting ECG Reason for Exam: vomiting Patient Location: E HR:77 bpm ECG Measurements Heart Rate 77 AXIS VA 158 P 54 QRSd 84 QRS -1 QT 443 T 206 QTc 502 Conclusion Sinus rhythm.., V-rate 60- 99 Low voltage, precordial leads...precordial leads <1.0mV Abnormal T, consider ischemia, diffuse leads...T <-0.20mV, ant/lat/inf no ST segment or T wave abnormalities to suggest occluisve NE no significant change from prior 05/17/23 [id number]
[2023-05-17 19:07] VITALS: BP 133/75; PULSE 82; RESP 16; O2SAT 100
[2023-05-17 19:52] LABS: Troponin I < 50 ng/L (< or =60)
[2023-05-17] MEDS: Metoclopramide 10 MG TAB 20 MG PO (20:13)
== END 2023-05-17 20:13 | disposition home or self-care (01) ==
PROVIDERS: Emergency Provider Student in an Organized Health Care Education/Training Program; PCP Family Medicine
DX: R53.1 Weakness; K52.9 Noninfective gastroenteritis and colitis, unspecified; E03.9 Hypothyroidism, unspecified; J44.9 Chronic obstructive pulmonary disease, unspecified; K21.9 Gastro-esophageal reflux disease without esophagitis; Z95.0 Presence of cardiac pacemaker; Z98.890 Other specified postprocedural states; Z79.899 Other long term (current) drug therapy; K76.0 Fatty (change of) liver, not elsewhere classified; I48.91 Unspecified atrial fibrillation; Z79.01 Long term (current) use of anticoagulants; R94.31 Abnormal electrocardiogram [ECG] [EKG]
CPT/HCPCS: 80053; 81025; 83690; 87637; 93005; 96361; 96374; 96375; 99285; 74177; 81003; 81015; 83605; 83880; 84443; 84484; 85025; 87086; 93010; J2405; J2765; J3490

== ENCOUNTER 2023-05-22 15:39 | Outpatient (REF) | payer BC, SELFPAY ==
[2023-05-22 12:21] LABS: Bilirubin Negative (Negative); Blood Negative (Negative); Clarity Clear (Clear); Glucose Negative (Negative); Ketones Negative (Negative); Leukocyte Esterase Negative (Negative); Nitrite Negative (Negative); Urobilinogen 0.2 mg/dL (Up to 0.2)
== END 2023-05-22 15:40 | disposition home or self-care (01) ==
LOC: LBN 15:39
PROVIDERS: PCP Family Medicine; Visit Provider Family Medicine
DX: R30.0 Dysuria (principal)
CPT/HCPCS: 81003

== ENCOUNTER 2023-05-31 09:17 | Outpatient (CLI) | payer BC, SELFPAY ==
[2023-05-31 09:53] LABS: ALT 39 U/L (14-59); AST 28 U/L (15-37); Albumin 3.7 g/dL (3.4-5.0); Alkaline Phosphatase 153 U/L (46-116); Anion Gap 7.3 mmol/L (3-11); BUN 13 mg/dL (7-18); Bilirubin, Total 0.4 mg/dL (0.2-1.0); CO2 30.7 mmol/L (21.0-32.0); CREATININE 0.7 mg/dL (0.55-1.02); Calcium 9.1 mg/dL (8.5-10.1); Chloride 104 mmol/L (98-107); Estimated GFR 102.07 (mL/min/1.73m2); Glucose 124 mg/dL (74-106); Potassium 4.2 mmol/L (3.5-5.1); Sodium 142 mmol/L (136-145); Total Protein 7.7 g/dL (6.4-8.2)
[2023-05-31 20:46] LABS: Calculated LDL 82 mg/dL (<100); Cholesterol 187 mg/dL (<200); HDL Cholesterol 53 mg/dL (40-60); Triglyceride 261 mg/dL (<150); Vitamin B12 263 pg/mL (193-986)
== END 2023-05-31 09:18 | disposition home or self-care (01) ==
LOC: LBO 09:17
PROVIDERS: PCP Family Medicine; Visit Provider Family Medicine
DX: E53.8 Deficiency of other specified B group vitamins (principal); I10 Essential (primary) hypertension
CPT/HCPCS: 36415; 80053; 80061; 82607

== ENCOUNTER 2023-11-07 09:41 | Emergency (ER) | payer BC, SELFPAY ==
[2023-11-07 09:54] VITALS: BP 112/79; PULSE 96; RESP 20; TEMP 36.8; O2SAT 95
--- NOTE | 2023-11-07 10:00 | RT.EKG_ITS ---
APPROVED REPORT Exam: Resting ECG Reason for Exam: Epigastric pain Patient Location: E HR:79 bpm ECG Measurements Heart Rate 79 AXIS SD 156 P 56 QRSd 78 QRS -2 QT 337 T 21 QTc 387 Conclusion Sinus rhythm...normal P axis, V-rate 60- 99 Low voltage, precordial leads...precordial leads <1.0mV Physician: Stable, no stemi, improved T wave inversions and depressions compared to prior ekg
--- NOTE | 2023-11-07 10:12 | W.ED.GENAD ---
Discharge Plan Disposition Patient Disposition: Home Condition: Stable Discharge Details Clinical Impression: Gastroenteritis, Adverse drug reaction Primary Care Provider: Lilliana Campo ED Provider: Juliet Beasley [place] Meds and New Rx's Prescriptions: New promethazine 25 mg tablet 25 mg PO TID PRN (Reason: nausea and vomiting) Qty: 10 0RF Rx Instructions: Take one tablet by mouth up to 3 times daily as needed for nausea and vomiting No Action acetaminophen [Mapap Extra Strength] 500 mg tablet 1,000 mg PO TID PRN metoprolol succinate 25 mg tablet extended release 24 hr 12.5 mg PO QHS Qty: 90 4RF atorvastatin 40 mg tablet 40 mg PO QHS Qty: 90 5RF amitriptyline 25 mg tablet 25 mg PO BID Qty: 180 5RF dofetilide [Tikosyn] 500 mcg capsule 500 mcg PO Q12H Qty: 180 4RF estradiol [Yuvafem] 10 mcg tablet 10 mcg vaginal .3 times weekly Qty: 36 4RF estradiol [Estrace] 0.01 % (0.1 mg/gram) cream 1 appful vaginal DAILY PRN (Reason: vaginal pain) Qty: 42.5 3RF Rx Instructions: use when left vaginal wall is irritated gabapentin 400 mg capsule 400 mg PO BID Qty: 180 4RF levothyroxine 125 mcg tablet 125 mcg PO DAILY Qty: 90 4RF mirabegron 50 mg tablet extended release 24 hr 50 mg PO DAILY Qty: 90 4RF famotidine 20 mg tablet 20 mg PO DAILY PRN (Reason: heartburn) Qty: 90 4RF nystatin 100,000 unit/gram powder 1 applic topical BID Qty: 60 4RF Eliquis 5 mg tablet 5 mg PO BID esomeprazole magnesium 20 mg capsule,delayed release(DR/EC) 20 mg PO DAILY Qty: 90 12RF duloxetine 30 mg capsule,delayed release(DR/EC) 30 mg PO DAILY Qty: 90 5RF duloxetine 20 mg capsule,delayed release(DR/EC) 20 mg PO DAILY Qty: 14 0RF Mounjaro 2.5 mg/0.5 mL pen injector 2.5 mg subcut QWEEK Qty: 6 5RF ondansetron 4 mg tablet,disintegrating 4 mg PO BID-TID PRN Discharge Instructions Instructions: Viral gastroenteritis in adults, Side effects from medicines Additional Instructions: At this time CT shows no obstruction. No evidence for bacterial infection. I do suspect that this is an adverse reaction from the new medication that you began. Nausea vomiting diarrhea is one of the side effects. No evidence of pancreatitis. Please take the nausea medications as prescribed. Please take Tylenol or Ibuprofen with food every 4-6 hours as needed for pain and swelling. Small meals, frequently, bland diet advance as tolerated. Stay away from anything fried fatty spicy or dairy. Follow up with primary care provider in 3-5 days. Return to ED sooner if any worsening vomiting, fever, worsening pain or concerns. Referrals: Lilliana Campo MD, [place] [Primary Care Provider] - 3 days HPI General Mode of arrival: ambulatory. Date/Time Provider Initiated Documentation: 11/07/23 09:59. Limitations to Documentation: no limitations. Information obtained by: patient, RN notes reviewed and old records reviewed. HPI Narrative: 53 year old female presents with mid to left sided abdominal pain which began yesterday. Just recently started tirzepatide injection for fatty liver disease on Sunday, since then has had increased abdominal pain, and nausea vomiting. She states that this is the worst pain she is ever felt. She also reports a small thin bowel movements. She does appear to be bloated. Abdomen is soft however. She did take Zofran and Phenergan and naproxen at 130 this morning prior to arrival. Other past medical history includes high cholesterol hypertension, she does have a pacemaker Meckel's diverticulum. She reports also that she did have some left-sided chest pain yesterday thought she was having a heart attack. She has had multiple abdominal surgeries. No other associated symptoms or concerns. Related Data Home Medications ?Medication ?Instructions ?Recorded ?Confirmed acetaminophen 500 mg tablet (Mapap 1,000 mg PO TID PRN 12/12/18 11/07/23 Extra Strength) apixaban 5 mg tablet (Eliquis) 5 mg PO BID 07/10/22 11/07/23 amitriptyline 25 mg tablet 25 mg PO BID #180 tabs 11/07/22 11/07/23 dofetilide 500 mcg capsule 500 mcg PO Q12H #180 caps 11/07/22 11/07/23 (Tikosyn) estradiol 0.01% (0.1 mg/gram) 1 appful vaginal DAILY PRN vaginal 11/07/22 11/07/23 vaginal cream (Estrace) pain #42.5 grams estradiol 10 mcg vaginal tablet 10 mcg vaginal .3 times weekly #36 11/07/22 11/07/23 (Yuvafem) tabs famotidine 20 mg tablet 20 mg PO DAILY PRN heartburn #90 11/07/22 11/07/23 tabs gabapentin 400 mg capsule 400 mg PO BID #180 caps 11/07/22 11/07/23 levothyroxine 125 mcg tablet 125 mcg PO DAILY #90 tabs 11/07/22 11/07/23 mirabegron 50 mg tablet,extended 50 mg PO DAILY #90 tabs 11/07/22 11/07/23 release 24 hr nystatin 100,000 unit/gram topical 1 applic topical BID #60 grams 11/07/22 11/07/23 powder atorvastatin 40 mg tablet 40 mg PO QHS #90 tabs 11/30/22 11/07/23 metoprolol succinate 25 mg 12.5 mg (1/2 x 25 mg) PO QHS #90 11/30/22 11/07/23 tablet,extended release 24 hr tabs duloxetine 30 mg capsule,delayed 30 mg PO DAILY #90 caps 04/16/23 11/07/23 release esomeprazole magnesium 20 mg 20 mg PO DAILY #90 tab-caps 05/31/23 11/07/23 capsule,delayed release duloxetine 20 mg capsule,delayed 20 mg PO DAILY #14 caps 06/22/23 11/07/23 release tirzepatide 2.5 mg/0.5 mL 2.5 mg (0.5 mL) subcut QWEEK #6 mL 08/30/23 11/07/23 subcutaneous pen injector (Evelyn) ondansetron 4 mg disintegrating 4 mg PO BID-TID PRN 11/07/23 11/07/23 tablet promethazine 25 mg tablet 25 mg PO TID PRN nausea and 11/07/23 vomiting #10 tabs Previous Rx's ?Medication ?Instructions ?Recorded amitriptyline 25 mg tablet 25 mg PO BID #180 tabs 11/07/22 dofetilide 500 mcg capsule 500 mcg PO Q12H #180 caps 11/07/22 (Tikosyn) estradiol 0.01% (0.1 mg/gram) 1 appful vaginal DAILY PRN vaginal 11/07/22 vaginal cream (Estrace) pain #42.5 grams estradiol 10 mcg vaginal tablet 10 mcg vaginal .3 times weekly #36 11/07/22 (Yuvafem) tabs famotidine 20 mg tablet 20 mg PO DAILY PRN heartburn #90 11/07/22 tabs gabapentin 400 mg capsule 400 mg PO BID #180 caps 11/07/22 levothyroxine 125 mcg tablet 125 mcg PO DAILY #90 tabs 11/07/22 mirabegron 50 mg tablet,extended 50 mg PO DAILY #90 tabs 11/07/22 release 24 hr nystatin 100,000 unit/gram topical 1 applic topical BID #60 grams 11/07/22 powder atorvastatin 40 mg tablet 40 mg PO QHS #90 tabs 11/30/22 metoprolol succinate 25 mg 12.5 mg (1/2 x 25 mg) PO QHS #90 11/30/22 tablet,extended release 24 hr tabs duloxetine 30 mg capsule,delayed 30 mg PO DAILY #90 caps 04/16/23 release esomeprazole magnesium 20 mg 20 mg PO DAILY #90 tab-caps 05/31/23 capsule,delayed release duloxetine 20 mg capsule,delayed 20 mg PO DAILY #14 caps 06/22/23 release tirzepatide 2.5 mg/0.5 mL 2.5 mg (0.5 mL) subcut QWEEK #6 mL 08/30/23 subcutaneous pen injector (Evelyn) promethazine 25 mg tablet 25 mg PO TID PRN nausea and 11/07/23 vomiting #10 tabs Allergies Allergy/AdvReac Type Severity Reaction Status Date / Time erythromycin base Allergy Severe Anaphylaxsis, Verified 11/07/23 09:57 hives Sulfa (Sulfonamide Allergy Mild Skin Rash Verified 11/07/23 09:57 Antibiotics) povidone-iodine (From AdvReac Intermediate Skin Rash Verified 11/07/23 09:57 Betadine) soap (From Betadine) AdvReac Intermediate Skin Rash Verified 11/07/23 09:57 tramadol AdvReac Intermediate incoherent Verified 11/07/23 09:57 General Stated Complaint: Nausea/Vomit/Diar KERRIE: 3 Review of Systems All systems reviewed & are unremarkable except as noted in HPI and below Gastrointestinal Gastrointestinal: Reports abdominal pain, Reports bloating, Reports change in bowel habits, Reports nausea and Reports vomiting Exam Narrative Exam Narrative: Constitutional: Alert and oriented x3. Appears stated age. Normal body habitus. Head: Normocephalic, no trauma. Eyes: Pupils PERRL, Red reflex noted, EOM's intact. Eyelids symmetrical without lesions, discharge, or swelling. ENT: Bilateral TM's WNL, External ear normal to inspection, no mastoid TTP, swelling, or erythema, Nasal turbinates WNL, no nasal discharge. Normal dentition, Posterior pharynx WNL, no exudate. Chest: RRR, Normal S1, S2, distal pulses intact. Resp: Lungs clear to auscultation bilaterally, no wheezes, rales, or rhonchi. Abdomen: Soft, appears bloated,, hyper active bowel sounds all 4 quads. Musculoskeletal: Normal gait, Moves all 4 extremities without difficulty. Skin: No suspicious rashes or lesions. Capillary refill less than 2 sec. Neurologic: Cranial nerves II-XII intact. Alert and oriented x 3. Motor: No deficits noted. Sensory: Intact bilaterally all 4 extremities. Hematologic/Lymphatic: No ecchymosis, no lymphadenopathy. Course Vital Signs Vital signs: Vital Signs Temperature 36.8 C 11/07/23 09:54 Pulse 96 H 11/07/23 09:54 Respiratory Rate 20 11/07/23 09:54 Blood Pressure 112/79 11/07/23 09:54 Pulse Oximetry 95 11/07/23 09:54 Temperature 36.8 C 11/07/23 09:54 Temperature Source Temporal Artery Scan 11/07/23 09:54 Pulse 96 H 11/07/23 09:54 Respiratory Rate 20 11/07/23 09:54 Respiratory Effort Normal 11/07/23 10:04 Blood Pressure 112/79 11/07/23 09:54 Blood Pressure Position Sitting 11/07/23 09:54 Pulse Oximetry 95 11/07/23 09:54 Oxygen Delivery Method Room Air 11/07/23 09:54 Oxygen Flow Rate 0 11/07/23 09:54 Pain Level 6 11/07/23 09:54 Medical Decision Making 53 year old female presents with mid to left sided abdominal pain which began yesterday. Just recently started tirzepatide injection for fatty liver disease on Sunday, since then has had increased abdominal pain, and nausea vomiting. She states that this is the worst pain she is ever felt. She also reports a small thin bowel movements. She does appear to be bloated. Abdomen is soft however. She did take Zofran and Phenergan and naproxen at 130 this morning prior to arrival. Other past medical history includes high cholesterol hypertension, she does have a pacemaker Meckel's diverticulum. She reports also that she did have some left-sided chest pain yesterday thought she was having a heart attack. She has had multiple abdominal surgeries. No other associated symptoms or concerns. Workup ordered including troponin EKG CBC CMP lipase CT abdomen pelvis, urinalysis liter of normal saline Informed by staff radiation therapist that nausea is worse after the Zofran and morphine. Will give some Reglan. CT shows some evidence of possible gastroenteritis no obstruction. I do suspect that this is a adverse reaction to the medication that she has begun. No leukocytosis, sodium was slightly low at 134 glucose 125, lipase within normal limits 21, troponin less than 4. EKG is improved from her previous. Discussed CT and lab results with patient and family and home care. Sent home with 4 tablets of oxycodone for breakthrough pain. Discussed strict return instructions verbalized understanding. This text was generated using [employer] dictation system, please disregard any oddities of phrase or misspellings. Medical Records Medical records reviewed: Yes I reviewed the patient's medical records. Imaging Data Radiologic Study: Imaging: CT Scan Radiologist's impression: FINDINGS: ABDOMEN and PELVIS: Lung Bases: No acute findings. Bilateral breast implants. Pacemaker leads. Liver: Enlarged. Severe hepatic steatosis. No suspicious mass. Gallbladder and biliary tract: Status post cholecystectomy. No biliary dilation. Pancreas: Normal density. No abnormal calcifications or inflammatory process. No evidence of mass. Spleen: Normal. Kidneys: Normal size, contour and axis. No radiodense stones. No obstructive uropathy. No suspicious masses seen. Adrenal glands: No masses seen. Vasculature: Abdominal aorta non-dilated. Soft tissues: Unremarkable. Bladder: Nearly empty. Bowel: Surgical clips at the GE junction. Stomach contains some fluid but is not abnormally distended. Small bowel anastomosis. No obstruction. Some fluid within loops of small bowel which are mildly dilated. No bowel wall thickening. Appendix normal. Digital quantity of stool. Peritoneal cavity: No ascites. No focal collection. No mesenteric inflammatory response. Bones: Unremarkable for age. Reproductive organs: Unremarkable. Lymph nodes: No pathologically enlarged lymph nodes. IMPRESSION:: Mildly dilated fluid-filled loops of small bowel without evidence of wall thickening or obstruction. Findings could indicate gastroenteritis. Small bowel anastomosis is unremarkable. Lab Data Lab results reviewed: Yes I reviewed the patient's lab results. Labs: Laboratory Tests Range/Units 11/07/23 10:21 WBC (4.4-10.8) 10^3/uL 8.53 RBC (3.93-5.22) 10^6/uL 4.95 Hgb (11.2-15.7) g/dL 15.0 Hct (36.0-46.0) % 44.8 MCV (80-95) fL 91 MCH (27.0-33.0) pg 30.3 MCHC (32.0-36.0) % 33.5 RDW (11.7-14.6) % 12.7 Plt Count (130-400) 10^3/uL 245 MPV (8.0-11.0) fL 9.3 Immature Gran % % 0.2 Neutrophils % % 66.5 Lymphocytes % % 24.9 Monocytes % % 7.6 Eosinophils % % 0.6 Basophils % % 0.2 Nucleated RBC % (0.0-0.3) % 0.0 Absolute Neutrophils (1.2-6.7) 10^3/uL 5.67 Absolute Lymphocytes (1.2-3.4) 10^3/uL 2.12 Absolute Monocytes (0.1-0.8) 10^3/uL 0.65 Absolute Eosinophils (0.0-0.7) 10^3/uL 0.05 Absolute Basophils (0.0-0.2) 10^3/uL 0.02 Sodium (136-145) mmol/L 134 L Potassium (3.5-5.1) mmol/L 4.4 Chloride (98-107) mmol/L 100 Carbon Dioxide (21.0-32.0) mmol/L 24.2 Anion Gap (3-11) mmol/L 9.8 BUN (7-18) mg/dL 11 Creatinine (0.55-1.02) mg/dL 0.9 Est GFR (CKD-EPI 2020) (mL/min/1.73m2) 75.50 Glucose (74-106) mg/dL 125 H Calcium (8.5-10.1) mg/dL 10.8 H Magnesium (1.8-2.4) mg/dL 2.1 Total Bilirubin (0.2-1.0) mg/dL 0.78 AST (15-37) U/L 41 H ALT (14-59) U/L 47 Alkaline Phosphatase (46-116) U/L 164 H Troponin I (<or=51) ng/L < 4 Total Protein (6.4-8.2) g/dL 8.1 Albumin (3.4-5.0) g/dL 3.9 Lipase (16-77) U/L 21 Quality:[facility] Health Related Social Needs: No Data to Display PFSH All Active Problems (Updated 11/07/23 @ 12:17 by Juliet Beasley NP) Adverse drug reaction (Acute) Gastroenteritis (Acute) B12 deficiency (Acute) Intractable nausea and vomiting (Acute) Fatty liver (Acute) Elevated liver enzymes (Acute) Elevated alkaline phosphatase level (Acute) Atrial fibrillation and flutter (Acute) Diabetes mellitus (Chronic) Obesity (BMI 30.0-34.9) (Acute) Pacemaker (Acute) 05/2020 [facility] Chest pain (Acute) H/O breast augmentation (Acute) PSVT (paroxysmal supraventricular tachycardia) (Acute) Syncope (Chronic) Paroxysmal atrial flutter (Acute) Tachycardia (Acute) 8 beat run of v tach Palpitations (Acute) Right shoulder pain (Acute) Bladder irritability (Acute) Vaginal bleeding (Acute) Rash (Acute) Annual physical exam (Acute) Atypical pigmented skin lesion (Acute 05/04/15) 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) Fibromyalgia (Acute 03/11/14) Headache (Acute 11/08/10) Lichen planus-like dermatitis (Acute 05/05/14) Pain of right hip (Acute 04/24/16) Radial styloid tenosynovitis of right hand (Acute 09/04/16) Weakness of left lower extremity (Chronic 12/27/15) CONFIRMED EMG PER BELKIS Tinnitus (Chronic 06/22/14) Rosacea (Chronic 01/27/13) Palpitations (Chronic 01/27/13) Myalgia and myositis, unspecified (Chronic 04/22/14) EMG studies - left sided weakness seeing rheum 09/12/13 seen by neurology [facility] Irritable colon (Chronic) Hypothyroidism (Chronic 09/16/12) S/P Grave's disease w/GONZALEZ [place]. GERD (gastroesophageal reflux disease) (Chronic) Lap keira x 2 (') Frequent falls (Chronic 12/27/15) Fatigue (Chronic 10/09/13) Esophageal dysmotility (Chronic) Decreased hearing of both ears (Chronic 04/30/14) Chronic obstructive lung disease (Chronic 02/25/13) PFT FEV1 71% Chronic low back pain with left-sided sciatica (Chronic 12/27/15) Bowel and bladder incontinence (Chronic 12/27/15) ?hydronephrosis by MRI. Blurring of visual image of both eyes (Chronic 01/04/15) eye exam normal Asthma (Chronic 06/11/14) Medical History Shoulder pain, right Abdominal pain Ankle edema (01/27/13) Closed nondisplaced fracture of neck of left radius (07/24/16) Disorder of gallbladder Dysmenorrhea (11/20/14) Heart murmur Herpes zoster without complication (11/02/16) Hypokalemia (10/18/15) Kidney stone (01/04/05) Neck pain (11/08/10) Pain of left breast (03/22/17) Pain of right thumb (10/02/16) Right lower quadrant pain (03/27/12) Disorder of gallbladder Abdominal pain Heart murmur h/o systolic murmur Cervicalgia 11/08/10 Right lower quadrant pain 03/27/12 Ankle edema 01/27/13 us neg times 1 occurred since long distance flight. bro recently dx w/PE Dysmenorrhea 11/20/14 Right lower quadrant pain (11/20/14) Right hip pain (04/24/16) Rash (06/22/14) Pain of right thumb (10/02/16) Neck pain (01/05/04) left C7-8; intense suboccipital; MRI 04/09 L4-5 Meckel's diverticulum (01/04/03) s/p surgical repair. 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 Abdominal pain, right lower quadrant Episodic prior to menses. Requires Dilaudid and NSAIDs for relief. 11/18/2014 ED visit for constant pain. R sided ovarian cyst. Surgical History H/O breast surgery H/O breast augmentation History of bilateral ligation of fallopian tubes History of breast augmentation History of unilateral oophorectomy Status post Keira fundoplication Status post appendectomy Status post cholecystectomy Status post hernia repair Status post tonsillectomy and adenoidectomy Status post vaginal hysterectomy (03/03/15) S/P tonsillectomy and adenoidectomy Status post Keira fundoplication History of gynecologic surgery cryotherapy, manual rupture of right ovarian cyst 2002 H/O breast augmentation S/P hernia repair with mesh placement S/P appendectomy History of bilateral tubal ligation 02/06/96 H/O surgical procedure 02/05/98 radioactive implant S/P cholecystectomy 02/05/09 [facility] S/P vaginal hysterectomy L ovary remains History of oophorectomy, unilateral 11/05/14 right Tonsillectomy and adenoidectomy Procedures CERVICAL LES CRYOTHERAPY Keira Fundoplication Vaginal hysterectomy (03/03/15) [facility]. Previously had R ophorectomy and bilateral salpingectomy. Repair of umbilical hernia with mesh. Dr. Milton. Diagnostic Laproscopy (08/07/02) RLQ pain. Nl pelvis and ovaries. No ovarian cysts. minimal pelvic endometriosis. Cholecystectomy 2009 [facility]. Cholecystectomy Augmentation mammoplasty Appendectomy 2007 [facility] with repair of Meckels diverticulum. Family History Mother , 69 Lung cancer Father , 72 Diabetes Essential hypertension Liver cancer Prostate cancer Sister No problems noted. Brother Diabetes Essential hypertension Hyperlipidemia Brother Diabetes Essential hypertension Hyperlipidemia Alcohol abuse Maternal Grandfather Diabetes Myocardial infarction Throat cancer Paternal Grandfather Diabetes Heart disease Prostate cancer Bone cancer Maternal Grandmother Heart disease Myocardial infarction Stroke Paternal Grandmother Stroke Rectal cancer Stomach cancer Bowel cancer Daughter No problems noted. Daughter Epilepsy Daughter No problems noted. 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 Pets and animals: Yes Pets and animals: cat(s) and dog(s) Sexually active: Yes Do you think of yourself as: straight/heterosexual Current gender identity: female What is your relationship status?: How often do you talk on the phone with friends or family?: three or more times per week How often do you get together with friends or relatives?: twice per week How often do you attend catholic or baptist services?: 1-3 times per year Do you belong to any clubs or organized social groups?: no Panel score (0-1 are the most socially isolated patients): 2 What type of physical activity do you participate in: walking Duration: 15-30 minutes/day Frequency: daily Dionna/Restorationist: Muslim Special dionna needs: No Seatbelt use: always Helmet use: Yes Helmet use: always Drive intox or ride w/intox mule driver: No Do you feel safe in your relationship?: Yes
[2023-11-07 10:28] LABS: Abs Immature Grans 0.02 10^3/uL (0.0-0.06); Absolute Basophil Count 0.02 10^3/uL (0.0-0.2); Absolute Eosinophil Count 0.05 10^3/uL (0.0-0.7); Absolute Lymphocyte Count 2.12 10^3/uL (1.2-3.4); Absolute Monocyte Count 0.65 10^3/uL (0.1-0.8); Absolute Neutrophil Count 5.67 10^3/uL (1.2-6.7); Basophils % 0.2 %; Eosinophils % 0.6 %; HCT 44.8 % (36.0-46.0); Immature Grans % 0.2 %; Lymphocytes % 24.9 %; MCH 30.3 pg (27.0-33.0); MCHC 33.5 % (32.0-36.0); MCV 91 fL (80-95); MPV 9.3 fL (8.0-11.0); Monocytes % 7.6 %; Neutrophils % 66.5 %; Platelet Count 245 10^3/uL (130-400); RBC 4.95 10^6/uL (3.93-5.22); RDW 12.7 % (11.7-14.6); RDW-SD 42.3 fL; WBC 8.53 10^3/uL (4.4-10.8)
[2023-11-07] MEDS: MORPHine 10 MG/ML VIAL 2 MG IVP (10:29)
[2023-11-07] MEDS: Ondansetron 4 MG/2 ML VIAL IVP (10:30)
[2023-11-07] MEDS: Normal Saline 1,000 ML 1000 ML IV (10:46)
[2023-11-07 10:50] LABS: ALT 47 U/L (14-59); AST 41 U/L (15-37); Albumin 3.9 g/dL (3.4-5.0); Alkaline Phosphatase 164 U/L (46-116); Anion Gap 9.8 mmol/L (3-11); BUN 11 mg/dL (7-18); Bilirubin, Total 0.78 mg/dL (0.2-1.0); CO2 24.2 mmol/L (21.0-32.0); CREATININE 0.9 mg/dL (0.55-1.02); Calcium 10.8 mg/dL (8.5-10.1); Chloride 100 mmol/L (98-107); Glucose 125 mg/dL (74-106); Lipase 21 U/L (16-77); Magnesium 2.1 mg/dL (1.8-2.4); Potassium 4.4 mmol/L (3.5-5.1); Sodium 134 mmol/L (136-145); Total Protein 8.1 g/dL (6.4-8.2); Troponin I < 4 ng/L (<or=51)
[2023-11-07] MEDS: LORazepam 2 MG/ML VIAL 0.5 MG IVP (11:02)
[2023-11-07] MEDS: fentaNYL 100 MCG/2 ML VIAL 25 MCG IVP (11:35)
[2023-11-07] MEDS: Normal Saline - Diluent 50 ML VIAL IJ (11:51)
[2023-11-07] MEDS: Omnipaque 350 MG/ML 500 ML BTL-Imaging package 85 ML IJ (11:52)
--- NOTE | 2023-11-07 11:56 | DI.CT_ITS ---
Exam(s) CT ABDOMEN PELVIS W EXAM: CT ABDOMEN PELVIS W CLINICAL HISTORY: N/V Abdominal pain, bloating. TECHNIQUE: Imaging Protocol: Axial computed tomography images with coronal and sagittal reformatted images were created and reviewed CONTRAST MATERIAL: Intravenous: Omnipaque 350 Contrast volume:85 ml Oral: / no COMPARISON: CT CT ABDOMEN PELVIS W from 05/17/2023 FINDINGS: ABDOMEN and PELVIS: Lung Bases: No acute findings. Bilateral breast implants. Pacemaker leads. Liver: Enlarged. Severe hepatic steatosis. No suspicious mass. Gallbladder and biliary tract: Status post cholecystectomy. No biliary dilation. Pancreas: Normal density. No abnormal calcifications or inflammatory process. No evidence of mass. Spleen: Normal. Kidneys: Normal size, contour and axis. No radiodense stones. No obstructive uropathy. No suspicious masses seen. Adrenal glands: No masses seen. Vasculature: Abdominal aorta non-dilated. Soft tissues: Unremarkable. Bladder: Nearly empty. Bowel: Surgical clips at the GE junction. Stomach contains some fluid but is not abnormally distende d. Small bowel anastomosis. No obstruction. Some fluid within loops of small bowel which are mildl y dilated. No bowel wall thickening. Appendix normal. Digital quantity of stool. Peritoneal cavity: No ascites. No focal collection. No mesenteric inflammatory response. Bones: Unremarkable for age. Reproductive organs: Unremarkable. Lymph nodes: No pathologically enlarged lymph nodes. IMPRESSION:: Mildly dilated fluid-filled loops of small bowel without evidence of wall thickening or obstruction. Findings could indicate gastroenteritis. Small bowel anastomosis is unremarkable. RADIATION DOSE DELIVERED: 424.96mGy.cm Total DLP DATA REPOSITORY: All CT scans at this facility are submitted to the National Radiology Data Registry (NRDR) Dose Index Registry (DIR) with the [employer] (A[employer]). RADIATION OPTIMIZATION: All CT scans at this facility use at least one of these dose optimization te chniques: automated exposure control; mA and/or kV adjustment per patient size (includes targeted exa ms where dose is matched to clinical indication); or iterative reconstruction.
[2023-11-07 12:10] VITALS: BP 137/82; PULSE 83; RESP 16; O2SAT 96
[2023-11-07 12:16] LABS: Bilirubin Negative (Negative); Blood Trace-intact (Negative); Clarity Clear (Clear); Glucose Negative (Negative); Ketones Negative (Negative); Leukocyte Esterase Negative (Negative); Nitrite Negative (Negative); Urobilinogen 0.2 mg/dL (Up to 0.2); pH 6.5 (5-8)
[2023-11-07 12:36] VITALS: BP 120/78; PULSE 80; RESP 16
[2023-11-07 12:45] LABS: Bacteria Few HPF (Negative); C & S Indicated? No; Casts Negative LPF (Negative); Crystals Negative HPF (Negative); Epithelial Cells Moderate HPF (Negative); Mucus Negative (Negative); Other Cells Rare Yeast (Negative); RBC 0-2 HPF (0-2)
== END 2023-11-07 12:41 | disposition home or self-care (01) ==
PROVIDERS: Emergency Provider Registered Nurse Emergency; PCP Family Medicine
DX: K52.1 Toxic gastroenteritis and colitis (principal); T50.995A Adverse effect of other drugs, medicaments and biological substances, initial encounter; I48.91 Unspecified atrial fibrillation; E11.9 Type 2 diabetes mellitus without complications; J44.9 Chronic obstructive pulmonary disease, unspecified; Z95.0 Presence of cardiac pacemaker; Z79.01 Long term (current) use of anticoagulants; Z79.899 Other long term (current) drug therapy
CPT/HCPCS: 80053; 83690; 93005; 96361; 96374; 96375; 99285; 74177; 81003; 81015; 83735; 84484; 85025; 93010; 99284; J2060; J2270; J2405; J3010

== ENCOUNTER 2023-11-10 13:46 | Emergency (ER) | payer BC, SELFPAY ==
[2023-11-10 13:47] VITALS: BP 114/71; PULSE 90; RESP 14; TEMP 36.6; O2SAT 95
--- NOTE | 2023-11-10 14:03 | W.ED.GENAD ---
Discharge Plan Disposition Patient Disposition: Home Condition: Stable Discharge Details Clinical Impression: Foot fracture, right Primary Care Provider: Lilliana Campo ED Provider: Juliet Beasley Home Meds and New Rx's Prescriptions: Continued acetaminophen [Mapap Extra Strength] 500 mg tablet 1,000 mg PO TID PRN metoprolol succinate 25 mg tablet extended release 24 hr 12.5 mg PO QHS Qty: 90 4RF atorvastatin 40 mg tablet 40 mg PO QHS Qty: 90 5RF amitriptyline 25 mg tablet 25 mg PO BID Qty: 180 5RF dofetilide [Tikosyn] 500 mcg capsule 500 mcg PO Q12H Qty: 180 4RF estradiol [Yuvafem] 10 mcg tablet 10 mcg vaginal .3 times weekly Qty: 36 4RF estradiol [Estrace] 0.01 % (0.1 mg/gram) cream 1 appful vaginal DAILY PRN (Reason: vaginal pain) Qty: 42.5 3RF Rx Instructions: use when left vaginal wall is irritated gabapentin 400 mg capsule 400 mg PO BID Qty: 180 4RF levothyroxine 125 mcg tablet 125 mcg PO DAILY Qty: 90 4RF mirabegron 50 mg tablet extended release 24 hr 50 mg PO DAILY Qty: 90 4RF famotidine 20 mg tablet 20 mg PO DAILY PRN (Reason: heartburn) Qty: 90 4RF nystatin 100,000 unit/gram powder 1 applic topical BID Qty: 60 4RF Eliquis 5 mg tablet 5 mg PO BID esomeprazole magnesium 20 mg capsule,delayed release(DR/EC) 20 mg PO DAILY Qty: 90 12RF duloxetine 30 mg capsule,delayed release(DR/EC) 30 mg PO DAILY Qty: 90 5RF duloxetine 20 mg capsule,delayed release(DR/EC) 20 mg PO DAILY Qty: 14 0RF Mounjaro 2.5 mg/0.5 mL pen injector 2.5 mg subcut QWEEK Qty: 6 5RF ondansetron 4 mg tablet,disintegrating 4 mg PO BID-TID PRN promethazine 25 mg tablet 25 mg PO TID PRN (Reason: nausea and vomiting) Qty: 10 0RF Rx Instructions: Take one tablet by mouth up to 3 times daily as needed for nausea and vomiting Discharge Instructions Instructions: Walking Boot, Foot Fracture ED Additional Instructions: At this time it appears you have broken a bone in your foot. Please stay off your foot is much as possible, use the crutches and walking boot when up and about. Rest elevate when laying or sitting down. Follow-up with orthopedics within the next 1 to 2 weeks. You are placed on a care management list. They should call you for an appointment. Please take Tylenol or Ibuprofen with food every 4-6 hours as needed for pain and swelling. Referrals: Kam Caicedo MD [ [facility] STAFF PHYSICIAN] - 1 week HPI General Mode of arrival: wheelchair. Date/Time Provider Initiated Documentation: 11/10/23 13:52. Limitations to Documentation: no limitations. Information obtained by: patient, RN notes reviewed and old records reviewed. HPI Narrative: 53-year-old female presents to the ER with chief complaint of right foot and right ankle pain after mechanical fall prior to arrival. Patient reports that she slipped on some rocks and leaves inverting her right ankle and falling down. She does have some midfoot pain with palpation and calcaneal pain. No obvious deformity noted. Distal CMS intact. Did not take any medications prior to arrival. She does take apixaban have a history of heart murmur, hypokalemia, tenosynovitis, diabetes, obesity, she does have a pacemaker in place. History of SVT. Related Data Home Medications ?Medication ?Instructions ?Recorded ?Confirmed acetaminophen 500 mg tablet (Mapap 1,000 mg PO TID PRN 12/12/18 11/10/23 Extra Strength) apixaban 5 mg tablet (Eliquis) 5 mg PO BID 07/10/22 11/10/23 amitriptyline 25 mg tablet 25 mg PO BID #180 tabs 11/07/22 11/10/23 dofetilide 500 mcg capsule 500 mcg PO Q12H #180 caps 11/07/22 11/10/23 (Tikosyn) estradiol 0.01% (0.1 mg/gram) 1 appful vaginal DAILY PRN vaginal 11/07/22 11/10/23 vaginal cream (Estrace) pain #42.5 grams estradiol 10 mcg vaginal tablet 10 mcg vaginal .3 times weekly #36 11/07/22 11/10/23 (Yuvafem) tabs famotidine 20 mg tablet 20 mg PO DAILY PRN heartburn #90 11/07/22 11/10/23 tabs gabapentin 400 mg capsule 400 mg PO BID #180 caps 11/07/22 11/10/23 levothyroxine 125 mcg tablet 125 mcg PO DAILY #90 tabs 11/07/22 11/10/23 mirabegron 50 mg tablet,extended 50 mg PO DAILY #90 tabs 11/07/22 11/10/23 release 24 hr nystatin 100,000 unit/gram topical 1 applic topical BID #60 grams 11/07/22 11/10/23 powder atorvastatin 40 mg tablet 40 mg PO QHS #90 tabs 11/30/22 11/10/23 metoprolol succinate 25 mg 12.5 mg (1/2 x 25 mg) PO QHS #90 11/30/22 11/10/23 tablet,extended release 24 hr tabs duloxetine 30 mg capsule,delayed 30 mg PO DAILY #90 caps 04/16/23 11/10/23 release esomeprazole magnesium 20 mg 20 mg PO DAILY #90 tab-caps 05/31/23 11/10/23 capsule,delayed release duloxetine 20 mg capsule,delayed 20 mg PO DAILY #14 caps 06/22/23 11/10/23 release tirzepatide 2.5 mg/0.5 mL 2.5 mg (0.5 mL) subcut QWEEK #6 mL 08/30/23 11/10/23 subcutaneous pen injector (Evelyn) ondansetron 4 mg disintegrating 4 mg PO BID-TID PRN 11/07/23 11/10/23 tablet promethazine 25 mg tablet 25 mg PO TID PRN nausea and 11/07/23 11/10/23 vomiting #10 tabs Previous Rx's ?Medication ?Instructions ?Recorded amitriptyline 25 mg tablet 25 mg PO BID #180 tabs 11/07/22 dofetilide 500 mcg capsule 500 mcg PO Q12H #180 caps 11/07/22 (Tikosyn) estradiol 0.01% (0.1 mg/gram) 1 appful vaginal DAILY PRN vaginal 11/07/22 vaginal cream (Estrace) pain #42.5 grams estradiol 10 mcg vaginal tablet 10 mcg vaginal .3 times weekly #36 11/07/22 (Yuvafem) tabs famotidine 20 mg tablet 20 mg PO DAILY PRN heartburn #90 11/07/22 tabs gabapentin 400 mg capsule 400 mg PO BID #180 caps 11/07/22 levothyroxine 125 mcg tablet 125 mcg PO DAILY #90 tabs 11/07/22 mirabegron 50 mg tablet,extended 50 mg PO DAILY #90 tabs 11/07/22 release 24 hr nystatin 100,000 unit/gram topical 1 applic topical BID #60 grams 11/07/22 powder atorvastatin 40 mg tablet 40 mg PO QHS #90 tabs 11/30/22 metoprolol succinate 25 mg 12.5 mg (1/2 x 25 mg) PO QHS #90 11/30/22 tablet,extended release 24 hr tabs duloxetine 30 mg capsule,delayed 30 mg PO DAILY #90 caps 04/16/23 release esomeprazole magnesium 20 mg 20 mg PO DAILY #90 tab-caps 05/31/23 capsule,delayed release duloxetine 20 mg capsule,delayed 20 mg PO DAILY #14 caps 06/22/23 release tirzepatide 2.5 mg/0.5 mL 2.5 mg (0.5 mL) subcut QWEEK #6 mL 08/30/23 subcutaneous pen injector (Evelyn) promethazine 25 mg tablet 25 mg PO TID PRN nausea and 11/07/23 vomiting #10 tabs Allergies Allergy/AdvReac Type Severity Reaction Status Date / Time erythromycin base Allergy Severe Anaphylaxsis, Verified 11/10/23 13:51 hives Sulfa (Sulfonamide Allergy Mild Skin Rash Verified 11/10/23 13:51 Antibiotics) povidone-iodine (From AdvReac Intermediate Skin Rash Verified 11/10/23 13:51 Betadine) soap (From Betadine) AdvReac Intermediate Skin Rash Verified 11/10/23 13:51 tramadol AdvReac Intermediate incoherent Verified 11/10/23 13:51 General Stated Complaint: Orthopedic KERRIE: 4 Review of Systems All systems reviewed & are unremarkable except as noted in HPI and below Musculoskeletal Musculoskeletal: Reports as per HPI, Reports arthralgias and Reports joint swelling Exam Extrem Right lower extremity: ankle Details: tenderness and foot Details: tenderness Course Vital Signs Vital signs: Vital Signs Temperature 36.6 C 11/10/23 13:47 Pulse 90 10/05/24 13:47 Respiratory Rate 14 11/10/23 13:47 Blood Pressure 114/71 11/10/23 13:47 Pulse Oximetry 95 11/10/23 13:47 Temperature 36.6 C 11/10/23 13:47 Temperature Source Oral 11/10/23 13:47 Pulse 90 11/10/23 13:47 Respiratory Rate 14 11/10/23 13:47 Respiratory Effort Normal 11/10/23 13:59 Blood Pressure 114/71 11/10/23 13:47 Blood Pressure Position Sitting 11/10/23 13:47 Pulse Oximetry 95 11/10/23 13:47 Oxygen Delivery Method Room Air 11/10/23 13:47 Oxygen Flow Rate 0 11/10/23 13:47 Pain Level 7 11/10/23 13:47 Medical Decision Making 53-year-old female presents to the ER with chief complaint of right foot and right ankle pain after mechanical fall prior to arrival. Patient reports that she slipped on some rocks and leaves inverting her right ankle and falling down. She does have some midfoot pain with palpation and calcaneal pain. No obvious deformity noted. Distal CMS intact. Did not take any medications prior to arrival. She does take apixaban have a history of heart murmur, hypokalemia, tenosynovitis, diabetes, obesity, she does have a pacemaker in place. History of SVT. X-ray ordered, Tylenol 650mg PO. X-rays of the foot show an avulsion fracture of the medial cuneiform, they are also questioning a possible Lisfranc injury. They are recommending MRI for further characterization however MRI is not available at this time. Will place patient in a walking boot and give crutches will instruct on RICE procedures and follow-up with orthopedics. This text was generated using [employer] dictation system, please disregard any oddities of phrase or misspellings. Imaging Data Radiologic Study: Imaging: X-Ray Radiologist's impression: Imaging protocol: Radiologic exam of the right ankle. Views: 3 or more views. COMPARISON: No relevant prior studies available. FINDINGS: Bones/joints: No acute fracture or subluxation. No aggressive osseous lesion is identified. Mild calcific enthesopathy of the medial malleolus. Plantar and Achilles calcaneal spurring. Mild degenerative changes of the visualized midfoot joints. No gross right ankle joint effusion. Soft tissues: Normal. IMPRESSION: No acute fracture or subluxation of the right ankle. Mild degenerative change. Thank you for allowing us to participate in the care of your patient. Dictated and Authenticated by: Esau Hooks MD Radiologic Study #2: Imaging: X-Ray Radiologist's impression: Clinical indication: Pain; Foot; Right; Patient HX: Fall TECHNIQUE: Imaging protocol: Radiologic exam of the right foot. Views: 3 or more views. COMPARISON: No relevant prior studies available. FINDINGS: Bones/joints: Avulsion fracture at the medial aspect of the medial cuneiform seen on the oblique view. There is question of additional fracture of the medial base of the 2nd metatarsal, however alignment at the Lisfranc joint appears otherwise anatomic. Mild degenerative changes of the midfoot joints. Calcaneal plantar and Achilles spurring. No aggressive osseous lesion. Soft tissues: Mild midfoot soft tissue swelling of the right foot. IMPRESSION: Avulsion fracture of the medial cuneiform as well as possible additional fracture of the medial base of the 2nd metatarsal with associated midfoot soft tissue swelling. The imaging findings raise concern for a minimally displaced Lisfranc injury, consider MRI for further characterization. Quality:[facility] Health Related Social Needs: No Data to Display PFSH All Active Problems (Updated 11/10/23 @ 15:23 by Juliet Beasley NP) Foot fracture, right (Acute) Adverse drug reaction (Acute) Gastroenteritis (Acute) B12 deficiency (Acute) Intractable nausea and vomiting (Acute) Fatty liver (Acute) Elevated liver enzymes (Acute) Elevated alkaline phosphatase level (Acute) Atrial fibrillation and flutter (Acute) Diabetes mellitus (Chronic) Obesity (BMI 30.0-34.9) (Acute) Pacemaker (Acute) 05/2020 [facility] [place] Chest pain (Acute) H/O breast augmentation (Acute) PSVT (paroxysmal supraventricular tachycardia) (Acute) Syncope (Chronic) Paroxysmal atrial flutter (Acute) Tachycardia (Acute) 8 beat run of v tach Palpitations (Acute) Right shoulder pain (Acute) Bladder irritability (Acute) Vaginal bleeding (Acute) Rash (Acute) Annual physical exam (Acute) Atypical pigmented skin lesion (Acute 05/04/15) 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) Fibromyalgia (Acute 03/11/14) Headache (Acute 11/08/10) Lichen planus-like dermatitis (Acute 05/05/14) Pain of right hip (Acute 04/24/16) Radial styloid tenosynovitis of right hand (Acute 09/04/16) Weakness of left lower extremity (Chronic 12/27/15) CONFIRMED EMG PER BELKIS Tinnitus (Chronic 06/22/14) Rosacea (Chronic 01/27/13) Palpitations (Chronic 01/27/13) Myalgia and myositis, unspecified (Chronic 05/27/13) EMG studies - left sided weakness seeing rheum 09/12/13 seen by neurology [facility] [place] Irritable colon (Chronic) Hypothyroidism (Chronic 09/16/12) S/P Grave's disease w/GONZALEZ TX. GERD (gastroesophageal reflux disease) (Chronic) Lap keira x 2 ('95) Frequent falls (Chronic 12/27/15) Fatigue (Chronic 10/09/13) Esophageal dysmotility (Chronic) Decreased hearing of both ears (Chronic 04/30/14) Chronic obstructive lung disease (Chronic 02/25/13) PFT FEV1 71% Chronic low back pain with left-sided sciatica (Chronic 12/27/15) Bowel and bladder incontinence (Chronic 12/27/15) ?hydronephrosis by MRI. Blurring of visual image of both eyes (Chronic 01/04/15) eye exam normal Asthma (Chronic 06/11/14) Medical History Shoulder pain, right Abdominal pain Ankle edema (01/27/13) Closed nondisplaced fracture of neck of left radius (07/24/16) Disorder of gallbladder Dysmenorrhea (11/20/14) Heart murmur Herpes zoster without complication (11/02/16) Hypokalemia (10/18/15) Kidney stone (01/04/05) Neck pain (11/08/10) Pain of left breast (03/22/17) Pain of right thumb (10/02/16) Right lower quadrant pain (03/27/12) Disorder of gallbladder Abdominal pain Heart murmur h/o systolic murmur Cervicalgia 11/08/10 Right lower quadrant pain 03/27/12 Ankle edema 01/27/13 us neg times 1 occurred since long distance flight. bro recently dx w/PE Dysmenorrhea 11/20/14 Right lower quadrant pain (11/20/14) Right hip pain (04/24/16) Rash (06/22/14) Pain of right thumb (10/02/16) Neck pain (01/05/04) left C7-8; intense suboccipital; MRI 04/09 L4-5 Meckel's diverticulum (01/04/03) s/p surgical repair. Lichen planus-like dermatitis (05/05/14) testing hep c Kidney stone (01/04/05) Hypokalemia (10/18/15) Herpes zoster without complication (11/02/16) Headache (11/08/10) Fibromyalgia syndrome (03/11/14) per digital printer operator Kishan 03/22 Facial twitching (06/22/14) Dysmenorrhea (11/20/14) De Quervain's tenosynovitis, right (09/04/16) Cyst of right ovary (11/20/14) Nondisplaced fracture of neck of left radius, initial encounter for closed fracture (07/24/16) Breast pain, left (03/22/17) Atypical mole (05/04/15) Arthralgia (03/03/14) Annual physical exam (07/31/17) Ankle edema (01/27/13) us neg times 1 occurred since long distance flight bro recently dx w/ PE Actinic keratoses (05/01/17) History of Graves' disease 1998 Rx with I131 and Thyroid replacement. Abdominal pain, right lower quadrant Episodic prior to menses. Requires Dilaudid and NSAIDs for relief. 11/18/2014 ED visit for constant pain. R sided ovarian cyst. Surgical History H/O breast surgery H/O breast augmentation History of bilateral ligation of fallopian tubes History of breast augmentation History of unilateral oophorectomy Status post Keira fundoplication Status post appendectomy Status post cholecystectomy Status post hernia repair Status post tonsillectomy and adenoidectomy Status post vaginal hysterectomy (03/03/15) S/P tonsillectomy and adenoidectomy Status post Keira fundoplication History of gynecologic surgery cryotherapy, manual rupture of right ovarian cyst 2002 H/O breast augmentation S/P hernia repair with mesh placement S/P appendectomy History of bilateral tubal ligation 02/06/96 H/O surgical procedure 02/05/98 radioactive implant S/P cholecystectomy 02/05/09 [facility] [place] S/P vaginal hysterectomy L ovary remains History of oophorectomy, unilateral 11/05/14 right Tonsillectomy and adenoidectomy Procedures CERVICAL LES CRYOTHERAPY Keira Fundoplication Vaginal hysterectomy (03/03/15) TVH. Previously had R ophorectomy and bilateral salpingectomy. Repair of umbilical hernia with mesh. Dr. Milton. Diagnostic Laproscopy (08/07/02) RLQ pain. Nl pelvis and ovaries. No ovarian cysts. minimal pelvic endometriosis. Cholecystectomy 2009 [facility] [place]. Cholecystectomy Augmentation mammoplasty Appendectomy 2007 [facility] [place] with repair of Meckels diverticulum. Family History Mother , 69 Lung cancer Father , 72 Diabetes Essential hypertension Liver cancer Prostate cancer Sister No problems noted. Brother Diabetes Essential hypertension Hyperlipidemia Brother Diabetes Essential hypertension Hyperlipidemia Alcohol abuse Maternal Grandfather Diabetes Myocardial infarction Throat cancer Paternal Grandfather Diabetes Heart disease Prostate cancer Bone cancer Maternal Grandmother Heart disease Myocardial infarction Stroke Paternal Grandmother Stroke Rectal cancer Stomach cancer Bowel cancer Daughter No problems noted. Daughter Epilepsy Daughter No problems noted. 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 Pets and animals: Yes Pets and animals: cat(s) and dog(s) Sexually active: Yes Do you think of yourself as: straight/heterosexual Current gender identity: female What is your relationship status?: How often do you talk on the phone with friends or family?: three or more times per week How often do you get together with friends or relatives?: twice per week How often do you attend gnosticist or congregation services?: 1-3 times per year Do you belong to any clubs or organized social groups?: no Panel score (0-1 are the most socially isolated patients): 2 What type of physical activity do you participate in: walking Duration: 15-30 minutes/day Frequency: daily Dionna/Mormonism: Latter Day Special dionna needs: No Seatbelt use: always Helmet use: Yes Helmet use: always Drive intox or ride w/intox milk driver: No Do you feel safe in your relationship?: Yes
--- NOTE | 2023-11-10 14:19 | DI.RAD_ITS ---
Exam(s) XR ANKLE RT COMPLETE EXAM: XR ANKLE RT COMPLETE CLINICAL HISTORY: Fall. TECHNIQUE: 2D digital imaging was performed. Three views. COMPARISON: CR,XR XR FOOT RT COMPLETE from 11/10/2023 FINDINGS: BONES: No acute fracture is present. No bony destructive lesion is seen. Heel spurs. JOINTS: The ankle mortise is normally aligned. Mild degenerative changes. SOFT TISSUE: Normal. IMPRESSION: Unremarkable radiographs of the right ankle. DATA REPOSITORY: RADIATION DOSE DELIVERED:
--- NOTE | 2023-11-10 14:19 | DI.RAD_ITS ---
Exam(s) XR FOOT RT COMPLETE EXAM: XR FOOT RT COMPLETE CLINICAL HISTORY: Fall. TECHNIQUE: 2D digital imaging was performed. Three views. COMPARISON: CR,XR XR ANKLE RT COMPLETE from 11/10/2023 FINDINGS: BONES: Question of a nondisplaced fracture of the lateral aspect of the cuboid. Small adjacent bony fragments appear circumscribed and likely represent ossicles. Tiny avulsion fragment at the distal, medial aspect of the 1st cuneiform. Question of fractures at the bases of the 1st and 2nd metatarsal s. No bony destructive lesion is seen. Small heel spurs. JOINTS: No dislocation present. Mild degenerative changes. SOFT TISSUE: Swelling at the medial aspect of the foot. IMPRESSION: Nondisplaced fracture at the lateral aspect of the cuboid. Tiny avulsion fracture from the 1st cunei form. Question of fractures at the base of the 1st and 2nd metatarsals. CT recommended for further evaluation. DATA REPOSITORY: RADIATION DOSE DELIVERED:
[2023-11-10] MEDS: Acetaminophen 325 MG TAB 650 MG PO (14:36)
--- NOTE | 2023-11-10 15:15 | DI.VRAD_ITS ---
PROCEDURE INFORMATION: Exam: XR Right Ankle Exam date and time: 11/10/2023 2:14 PM Age: 53 years old Clinical indication: Pain; Ankle; Right; Patient HX: Fall TECHNIQUE: Imaging protocol: Radiologic exam of the right ankle. Views: 3 or more views. COMPARISON: No relevant prior studies available. FINDINGS: Bones/joints: No acute fracture or subluxation. No aggressive osseous lesion is identified. Mild calcific enthesopathy of the medial malleolus. Plantar and Achilles calcaneal spurring. Mild degenerative changes of the visualized midfoot joints. No gross right ankle joint effusion. Soft tissues: Normal. IMPRESSION: No acute fracture or subluxation of the right ankle. Mild degenerative change. Dictated and Authenticated by: Esau Hooks MD. Ordering:CROW Chung MD
--- NOTE | 2023-11-10 15:17 | DI.VRAD_ITS ---
PROCEDURE INFORMATION: Exam: XR Right Foot Exam date and time: 11/10/2023 2:12 PM Age: 53 years old Clinical indication: Pain; Foot; Right; Patient HX: Fall TECHNIQUE: Imaging protocol: Radiologic exam of the right foot. Views: 3 or more views. COMPARISON: No relevant prior studies available. FINDINGS: Bones/joints: Avulsion fracture at the medial aspect of the medial cuneiform seen on the oblique view. There is question of additional fracture of the medial base of the 2nd metatarsal, however alignment at the Lisfranc joint appears otherwise anatomic. Mild degenerative changes of the midfoot joints. Calcaneal plantar and Achilles spurring. No aggressive osseous lesion. Soft tissues: Mild midfoot soft tissue swelling of the right foot. IMPRESSION: Avulsion fracture of the medial cuneiform as well as possible additional fracture of the medial base of the 2nd metatarsal with associated midfoot soft tissue swelling. The imaging findings raise concern for a minimally displaced Lisfranc injury, consider MRI for further characterization. Dictated and Authenticated by: Esau Hooks MD. Ordering:CROW Chung MD
== END 2023-11-10 15:55 | disposition home or self-care (01) ==
PROVIDERS: Emergency Provider Registered Nurse Emergency; PCP Family Medicine
DX: S92.214A Nondisplaced fracture of cuboid bone of right foot, initial encounter for closed fracture (principal); E11.9 Type 2 diabetes mellitus without complications; Z79.01 Long term (current) use of anticoagulants; Z79.85 Long-term (current) use of injectable non-insulin antidiabetic drugs; Z95.0 Presence of cardiac pacemaker
CPT/HCPCS: 99283; 73610; 73630

== ENCOUNTER 2023-12-24 16:00 | Outpatient (CLI) | payer BC, SELFPAY ==
--- NOTE | 2023-12-24 09:00 | DI.RAD_ITS ---
Exam(s) XR FOOT RT COMPLETE EXAM: XR FOOT RT COMPLETE CLINICAL HISTORY: fracture/pain. TECHNIQUE: 2D digital imaging was performed. Three views. COMPARISON: CR,XR XR FOOT RT COMPLETE from 11/10/2023 FINDINGS: BONES: Stable fracture alignment. No new fractures are visible. No bony destructive lesion is seen. Heel spurs again noted. JOINTS: No dislocation present. SOFT TISSUE: Mild swelling. IMPRESSION: Stable fracture alignment. DATA REPOSITORY: RADIATION DOSE DELIVERED:
== END 2023-12-24 16:01 | disposition home or self-care (01) ==
LOC: DIORS 16:00
PROVIDERS: PCP Family Medicine; Visit Provider Physician Assistant
DX: S92.901D Unspecified fracture of right foot, subsequent encounter for fracture with routine healing (principal); X58.XXXD Exposure to other specified factors, subsequent encounter
CPT/HCPCS: 73630

== ENCOUNTER 2024-01-17 03:23 | Outpatient (CLI) | payer BC, SELFPAY ==
[2024-01-17 11:42] LABS: HCT 42.8 % (36.0-46.0); HGB 14.3 g/dL (11.2-15.7); MCH 30.3 pg (27.0-33.0); MCHC 33.4 % (32.0-36.0); MCV 91 fL (80-95); MPV 9.2 fL (8.0-11.0); Platelet Count 228 10^3/uL (130-400); RBC 4.72 10^6/uL (3.93-5.22); RDW 12.4 % (11.7-14.6); WBC 7.27 10^3/uL (4.4-10.8)
[2024-01-17 11:54] LABS: Hemoglobin A1C 6.1 % (<5.7)
[2024-01-17 12:48] LABS: ALT 43 U/L (14-59); AST 36 U/L (15-37); Albumin 3.7 g/dL (3.4-5.0); Alkaline Phosphatase 169 U/L (46-116); Anion Gap 11.6 mmol/L (3-11); BUN 13 mg/dL (7-18); Bilirubin, Total 0.61 mg/dL (0.2-1.0); CO2 24.4 mmol/L (21.0-32.0); CREATININE 0.9 mg/dL (0.55-1.02); Calcium 9.2 mg/dL (8.5-10.1); Calculated LDL 68 mg/dL (<100); Chloride 105 mmol/L (98-107); Cholesterol 188 mg/dL (<200); Estimated GFR 75.03 (mL/min/1.73m2); Glucose 109 mg/dL (74-106); HDL Cholesterol 61 mg/dL (40-60); Potassium 3.9 mmol/L (3.5-5.1); Sodium 141 mmol/L (136-145); TSH (W/Ref FT4) 0.15 uIU/mL (0.36-3.74); Total Protein 7.7 g/dL (6.4-8.2); Triglyceride 295 mg/dL (<150)
[2024-01-17 13:08] LABS: FREE T4 1.16 ng/dL (0.76-1.46)
== END 2024-01-17 03:24 | disposition home or self-care (01) ==
PROVIDERS: PCP Family Medicine; Visit Provider Family Medicine
DX: E11.9 Type 2 diabetes mellitus without complications (principal); R00.2 Palpitations; I10 Essential (primary) hypertension; E03.9 Hypothyroidism, unspecified
CPT/HCPCS: 36415; 80053; 80061; 85027; 83036; 84439; 84443

== ENCOUNTER 2024-01-28 10:48 | Outpatient (CLI) | payer BC, SELFPAY ==
--- NOTE | 2024-01-28 09:15 | DI.RAD_ITS ---
Exam(s) XR FOOT RT COMPLETE EXAM: XR FOOT RT COMPLETE CLINICAL HISTORY: F/U FRACTURE. TECHNIQUE: 2D digital imaging was performed. Three views. COMPARISON: CR XR FOOT RT COMPLETE from 12/24/2023 FINDINGS: BONES: Grossly stable fracture alignment. The fractures are not well visualized. No bony destructiv e lesion is seen. Small heel spurs. JOINTS: No dislocation present. SOFT TISSUE: Normal. IMPRESSION: Stable fracture alignment. No new abnormalities. DATA REPOSITORY: RADIATION DOSE DELIVERED:
== END 2024-01-28 10:49 | disposition home or self-care (01) ==
LOC: DIORS 10:56
PROVIDERS: PCP Family Medicine; Visit Provider Physician Assistant
DX: S92.301D Fracture of unspecified metatarsal bone(s), right foot, subsequent encounter for fracture with routine healing (principal); X58.XXXD Exposure to other specified factors, subsequent encounter
CPT/HCPCS: 73630

== ENCOUNTER 2024-05-08 10:36 | Outpatient (CLI) | payer BC, SELFPAY ==
[2024-05-08 12:33] LABS: HCT 39.4 % (36.0-46.0); HGB 12.9 g/dL (11.2-15.7); MCH 29.5 pg (27.0-33.0); MCHC 32.7 % (32.0-36.0); MCV 90 fL (80-95); MPV 9.8 fL (8.0-11.0); Platelet Count 241 10^3/uL (130-400); RBC 4.37 10^6/uL (3.93-5.22); RDW-SD 42.5 fL; WBC 6.52 10^3/uL (4.4-10.8)
[2024-05-08 13:12] LABS: ALT 36 U/L (14-59); AST 31 U/L (15-37); Albumin 3.6 g/dL (3.4-5.0); Alkaline Phosphatase 143 U/L (46-116); Anion Gap 9.7 mmol/L (3-11); BUN 8 mg/dL (7-18); Bilirubin, Total 0.4 mg/dL (0.2-1.0); CO2 26.3 mmol/L (21.0-32.0); CREATININE 0.7 mg/dL (0.55-1.02); Calcium 8.8 mg/dL (8.5-10.1); Calculated LDL 57 mg/dL (<100); Chloride 105 mmol/L (98-107); Cholesterol 137 mg/dL (<200); Estimated GFR 101.44 (mL/min/1.73m2); Glucose 116 mg/dL (74-106); HDL Cholesterol 59 mg/dL (>or=50); Potassium 4.1 mmol/L (3.5-5.1); Sodium 141 mmol/L (136-145); TSH (W/Ref FT4) 0.31 uIU/mL (0.36-3.74); Total Protein 7.2 g/dL (6.4-8.2); Triglyceride 109 mg/dL (<150)
[2024-05-08 13:30] LABS: FREE T4 1.27 ng/dL (0.76-1.46)
== END 2024-05-08 10:37 | disposition home or self-care (01) ==
LOC: LOS 10:36
PROVIDERS: PCP Family Medicine; Referring Provider Family Medicine; Visit Provider Family Medicine
DX: I10 Essential (primary) hypertension (principal); Z79.01 Long term (current) use of anticoagulants; E03.9 Hypothyroidism, unspecified
CPT/HCPCS: 36415; 80053; 80061; 85027; 84439; 84443

== ENCOUNTER 2024-05-12 02:08 | Outpatient (CLI) | payer BC, SELFPAY ==
--- NOTE | 2024-05-12 08:00 | DI.RAD_ITS ---
Exam(s) XR HIP LT COMPLETE AP PELVIS EXAM: XR HIP LT COMPLETE AP PELVIS CLINICAL HISTORY: LT HIP AND LOW BACK PAIN,M25.552,M54.42. TECHNIQUE: 2D digital imaging was performed. Two views. COMPARISON: CR RT HIP COMPLETE AP PELVIS from 04/24/2016 FINDINGS: BONES: No acute fracture is present. No bony destructive lesion is seen. JOINTS: No dislocation present. The SI joints and pubic symphysis are intact. No the hip joint spaces are maintained. There is bilateral acetabular spurring greatest superiorly. SOFT TISSUE: Normal. IMPRESSION: Mild degenerative changes of both hips. DATA REPOSITORY: RADIATION DOSE DELIVERED:
--- NOTE | 2024-05-12 08:00 | DI.RAD_ITS ---
Exam(s) XR CERVICAL SPINE COMP 4-5V EXAM: XR CERVICAL SPINE COMP 4-5V CLINICAL HISTORY: LR and LLF cause sharp r neck pain,M54.2. TECHNIQUE: 2D digital imaging was performed. Five images were obtained. AP, odontoid, lateral and bi lateral oblique images were obtained. COMPARISON: No exams were available for comparison FINDINGS: The odontoid is intact. The lateral masses are well aligned. There is normal alignment of the cervi fanny spine. There are endplate osteophytes seen both anteriorly and posteriorly at C4-5 through C7-T1. There is mild disc space narrowing at C4-C5 and C6-C7. No acute fracture or subluxation is present. There is moderately severe bilateral neural foraminal stenosis at C4-5 and C5-C6 the cervical thorac ic junction is well maintained. The prevertebral soft tissues are unremarkable. Lung apices are katelynn r. IMPRESSION: Moderately severe degenerative changes most marked at C4-5 and C5-C6 as described above. DATA REPOSITORY: RADIATION DOSE DELIVERED:
--- NOTE | 2024-05-12 08:00 | DI.RAD_ITS ---
Exam(s) XR LUMBAR SPINE COMPLETE EXAM: XR LUMBAR SPINE COMPLETE CLINICAL HISTORY: LOW BACK AND LT HIP PAIN,M25.552,M54.42. TECHNIQUE: 2D digital imaging was performed of the lumbar spine. Six images were obtained. AP, lat eral, right oblique, left oblique and L5-S1 spot views were obtained. COMPARISON: CR LUMBAR SPINE COMPLETE from 03/27/2014 CR XR DEXA BONE DENSITY W/WO DON from 12/14/2022 FINDINGS: BONES: No fracture or destructive lesion. There are endplate osteophytes seen at multiple levels of t he lumbar spine. Degenerative changes of the facets are seen at L5-S1. DISKS: Intervertebral disc spaces are maintained. ALIGNMENT: Lumbar spinal alignment is within normal limits. No spondylolysis or spondylolisthesis. SOFT TISSUE: There is surgical clips seen in the upper abdomen. IMPRESSION: [id number] degenerative changes seen in the lumbar spine. DATA REPOSITORY: RADIATION DOSE DELIVERED:
== END 2024-05-12 02:28 ==
LOC: DI 02:08
PROVIDERS: PCP Family Medicine; Visit Provider Family Medicine
DX: M54.42 Lumbago with sciatica, left side (principal); M51.362 Other intervertebral disc degeneration, lumbar region with discogenic back pain and lower extremity pain
CPT/HCPCS: 72050; 72110; 73502

== ENCOUNTER 2024-08-06 08:40 | Outpatient (CLI) | payer BC, SELFPAY ==
--- NOTE | 2024-08-06 08:30 | RT.EKG_ITS ---
APPROVED REPORT Exam: Resting ECG Reason for Exam: tachycardia Patient Location: O HR:74 bpm ECG Measurements Heart Rate 74 AXIS CO 214 P [id number] QRSd 93 QRS 4 QT 395 T 10 QTc 439 Conclusion Atrial-paced rhythm Low voltage, precordial leads...precordial leads <1.0mV
== END 2024-08-06 08:41 | disposition home or self-care (01) ==
LOC: DI.CARD 08:41
PROVIDERS: PCP Family Medicine; Visit Provider Internal Medicine Cardiovascular Disease
DX: R00.0 Tachycardia, unspecified (principal); I48.92 Unspecified atrial flutter
CPT/HCPCS: 93010

== ENCOUNTER 2024-11-03 04:27 | Outpatient (CLI) | payer BC, SELFPAY ==
[2024-11-03 12:17] LABS: HCT 42.9 % (36.0-46.0); HGB 14.0 g/dL (11.2-15.7); MCH 29.2 pg (27.0-33.0); MCHC 32.6 % (32.0-36.0); MCV 90 fL (80-95); MPV 9.1 fL (8.0-11.0); Platelet Count 195 10^3/uL (130-400); RBC 4.79 10^6/uL (3.93-5.22); RDW 12.4 % (11.7-14.6); RDW-SD 41.1 fL; WBC 6.32 10^3/uL (4.4-10.8)
[2024-11-03 13:17] LABS: ALT 51 U/L (14-59); AST 48 U/L (15-37); Albumin 3.8 g/dL (3.4-5.0); Alkaline Phosphatase 151 U/L (46-116); Anion Gap 7.9 mmol/L (3-11); BUN 10 mg/dL (7-18); Bilirubin, Total 0.6 mg/dL (0.2-1.0); CO2 30.1 mmol/L (21.0-32.0); Calcium 9.2 mg/dL (8.5-10.1); Chloride 103 mmol/L (98-107); Estimated GFR 86.42 (mL/min/1.73m2); Glucose 108 mg/dL (74-106); Hemoglobin A1C 6.0 % (<5.7); Potassium 4.0 mmol/L (3.5-5.1); Sodium 141 mmol/L (136-145); TSH (W/Ref FT4) 0.02 uIU/mL (0.36-3.74); Total Protein 7.6 g/dL (6.4-8.2); Vitamin B12 346 pg/mL (193-986)
== END 2024-11-03 04:28 | disposition home or self-care (01) ==
PROVIDERS: PCP Family Medicine; Visit Provider Family Medicine
DX: E11.9 Type 2 diabetes mellitus without complications (principal); E53.8 Deficiency of other specified B group vitamins; I10 Essential (primary) hypertension; E03.9 Hypothyroidism, unspecified
CPT/HCPCS: 36415; 80053; 85027; 82607; 83036; 84439; 84443

== ENCOUNTER 2024-12-22 13:55 | Outpatient (REF) | payer OTHER, SELFPAY ==
[2024-12-22 14:58] LABS: Glucose Negative (Negative)
== END 2024-12-22 13:56 | disposition home or self-care (01) ==
LOC: LBN 13:55
PROVIDERS: PCP Family Medicine; Visit Provider Family Medicine
DX: N23 Unspecified renal colic (principal)
CPT/HCPCS: 81003

== ENCOUNTER 2024-12-23 03:38 | Outpatient (CLI) | payer OTHER, SELFPAY ==
[2024-12-23 11:58] LABS: ALT 35 U/L (10-49); AST 44 U/L (<34); Albumin 4.5 g/dL (3.4-5.0); Alkaline Phosphatase 150 U/L (46-116); Anion Gap 8 mmol/L (3-11); BUN 14 mg/dL (9-23); Bilirubin, Total 0.70 mg/dL (0.2-1.2); CO2 30.0 mmol/L (20.0-31.0); Calcium 9.3 mg/dL (8.3-10.6); Chloride 103 mmol/L (98-107); Glucose 103 mg/dL (74-106); Potassium 4.1 mmol/L (3.5-5.1); Sodium 141 mmol/L (136-145); Total Protein 7.4 g/dL (5.7-8.2)
[2024-12-23 12:02] LABS: TSH (W/Ref FT4) 0.19 uIU/mL (0.55-4.78)
== END 2024-12-23 03:39 | disposition home or self-care (01) ==
LOC: LBO 03:38
PROVIDERS: PCP Family Medicine; Visit Provider Family Medicine
DX: E03.9 Hypothyroidism, unspecified (principal); I10 Essential (primary) hypertension
CPT/HCPCS: 36415; 80053; 84439; 84443